=== PATIENT | female | born 1950 | race Caucasian/White ===

== ENCOUNTER → 2016-08-07 | Outpatient (CLI) | payer OTHER ==
[2015-10-31 22:44] VITALS: BP 194/91
--- NOTE | 2016-08-07 11:35 | MRI ---
HISTORY: Cervicalgia Study: MRI cervical spine without contrast Comparison: None Technique: Multi planar multi sequence non contrast images Findings: The prevertebral soft tissues are normal. The vertebral body alignment and bone signal is normal. Th e cervical spinal cord is normal in size and configuration and without foci of abnormal signal. Inci dental note is made of some benign hemangiomatous change in the C6 vertebral body. The disc levels w ere evaluated as follows: C2-3 level: No evidence for compressive disc disease. The neural foramina are patent. C3-4 level: Mild broad-based disk bulging causes mild thecal sac effacement but no neural compressio n or canal stenosis. The right neural foramen is patent. There is mild spondylitic foraminal narrowi ng on the left. C4-5 level: Minimal disk bulging effaces the thecal sac but does not contribute to significant canal stenosis or cord compression. The neural foramina are patent. C5-6 level: There is mild disc bulging which effaces the thecal sac but does not contribute to signi ficant canal stenosis or cord compression. The neural foramina are patent. C6-7 level: There is disc degeneration with broad-based disc osteophyte formation effacing the theca l sac and contributing to moderate canal stenosis but no significant cord compression. There is spon dylitic foraminal narrowing bilaterally. C7-T1 level: No evidence for compressive disc disease. The neural foramina are patent. IMPRESSION: As above Reported By:
--- NOTE | 2016-08-07 16:15 | MG ---
HISTORY: SCREENING Comparison: May 10, 2008 FINDINGS: Bilateral CC and MLO projections of the right and left breast were obtained. Predominately fatty re placed fibroglandular tissue is seen to be present. No significant architectural distortion, mass o r clustered microcalcifications can be observed to suggest malignancy. No skin thickening or nipple retraction is appreciated. No pathological lymphadenopathy can be identified. Benign-appearing ca lcifications scattered throughout the right and left breasts are observed. IMPRESSION: NO RADIOGRAPHIC EVIDENCE OF MALIGNANCY. ACR CATEGORY 2 - benign findings. FOLLOW-UP EXAM 1 YEAR. Diagnostic CAD was utilized and reviewed. * 0 (ZERO) - ASSESSMENT INCOMPLETE; ADDITIONAL IMAGING IS NEEDED. * 1/ (ONE) - NEGATIVE. * 2/II (TWO) - BENIGN FINDINGS. * 3/III (THREE) - PROBABLY BENIGN FINDING; SHORT INTERVAL FOLLOW-UP SUGGESTED. * 4/IV (FOUR) - SUSPICIOUS ABNORMALITY; BIOPSY SHOULD BE CONSIDERED. * 5/V - HIGHLY SUSPICIOUS OF MALIGNANCY; BIOPSY SHOULD BE PERFORMED. A NEGATIVE X-RAY REPORT SHOULD NOT DELAY BIOPSY IF A DOMINANT OR CLINICALLY SUSPICIOUS MASS IS PRESENT; 4 TO 8 PERCENT OF CANCERS ARE NOT IDENTIFIED BY X-RAY. A NEG ATIVE REPORT MAY REINFORCE THE CLINICAL IMPRESSION. ADENOSIS AND DENSE BREASTS MAY OBSCURE AN UNDER LYING NEOPLASM. Reported By:
--- NOTE | 2016-08-07 16:35 | MRI ---
MRI left shoulder without contrast Indication: Chronic left shoulder pain. Comparison: None Technique: Multiplanar, multisequence MR images of the left shoulder were obtained without contrast. Findings: The bony alignment and marrow signal are within normal limits, without evidence for acute fracture or subluxation. There is moderate degenerative disease at the AC joint, resulting in mild e ffacement of the underlying rotator cuff. There is a small amount of fluid within the subacromial/myrick bdeltoid bursa. The distal supraspinatus and infra spinatus are diffusely thickened with intermediat e signal, consistent with tendinosis, with undersurface fraying no high-grade tear or tendon retract ion is identified. The subscapularis, teres minor, and intra-articular biceps tendon are grossly int act. There is mildly increased fluid surrounding the extra-articular portion of the long head biceps tendon. There is no significant joint effusion. There is mild diffuse glenohumeral chondrosis, with out full-thickness chondral defect. No overt labral tear is identified. No significant muscle atroph y appreciated. Impression: 1. Distal supraspinatus and infraspinatus tendinosis with undersurface fraying. 2. 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 3. Increased fluid within the biceps tendon sheath may be related to communication with the joint sp leigh ann, although tenosynovitis is not excluded. Reported By:
== END ==
LOC: RAD 08:19
PROVIDERS: ATTEND Internal Medicine
DX: Z12.31 Encounter for screening mammogram for malignant neoplasm of breast (principal); M54.2 Cervicalgia; M25.512 Pain in left shoulder; M19.012 Primary osteoarthritis, left shoulder; M75.52 Bursitis of left shoulder; M50.81 Other cervical disc disorders, high cervical region; M50.821 Other cervical disc disorders at C4-C5 level; M50.822 Other cervical disc disorders at C5-C6 level; M50.323 Other cervical disc degeneration at C6-C7 level
CPT/HCPCS: 72141; 73221; 77067

== ENCOUNTER 2016-09-22 20:18 | Emergency (ER) | payer OTHER ==
[2016-09-22 20:24] VITALS: BMI 41.1
[2016-09-22] MEDS ORDERED: ASPIRIN ONE (20:42)
[2016-09-22] MEDS ORDERED: ASPIRIN PO SCH (21:00)
--- NOTE | 2016-09-22 21:02 | DR.CP ---
HPI - Time Seen Time seen: 21:00 - PCP Primary Care Physician: FRITZ - HPI Comment HPI Comment: SUDDEN ONSET OF PRECORDIAL CHEST PAIN RADIATING TO LEFT ARM AND STARTED GOING TO LEFT JAW BEFORE COMING.PAIN STARTED ONE HOUR AGO. PATIENT IS ASSOCIATED WITH NAUSEA AND DIAPHORESIS. - Complaint Chief Complaint Doctor Comments: CHEST PAIN. Chief Complaint:: CHEST PAIN RADIATES DOWN LEFT ARM, NAUSEA, SWEATY FEELING FOR ABOUT 45 MINS. Self Treatment fo Chief Complaint: XANAX 1MG - Reviewed Nurses Notes Review: Yes - Source History Provided: Patient - Mode of Arrival Mode of Arrival: Ambulatory - Timing Onset of Chief Complaint: 09/22/16 Came on: Suddenly Pain: Resolved - Duration Duration: Since Onset Duration: Hours - Location Location of Chest Pain: Left, Chest Chest Pain Radiation Location: Left Jaw, Left Arm, Left Shoulder - Context Onset: At rest Cardiac Risk Factors: Family History (heart failure.), HTN History of: None Prehospital Care: None - Quality Quality: Pressure like, Heavy - Severity Severity: Severe - Modifying Factors Worsens: Nothing Impoves: Nothing - Associated Signs and Symptoms Associated Signs and Symptoms: Shortness of Breath, Diaphoresis, Nausea/Vomiting PMH - PMH Past Medical History: Yes Past Medical History: Anxiety, Arthritis, Depression, GERD, Hypertension Past Surgical History: Yes Surgical History: Appendectomy, Cholecystectomy, Hysterectomy, Ortho Surgery, Tonsillectomy - Family History History of Family Medical Conditions: Yes Family Medical History: Diabetes Mellitus, Heart Failure, Hypertension - Social History Does patient currently use any type of tobacco product: No Type of Tobacco Use: None Does any household member use tobacco: No Alcohol Use: None Do you use any recreational Drugs:: No Lives With: Spouse Lives Where: Home - infectious screening Have you traveled outside the country in the last 6 months?: No Isolation: Standard ROS - Review of Systems Constitutional: Diaphoresis, Weakness, Fatigue. negative: Chills, Fever Eyes: No Symptoms Reported. negative: Eye Pain, Discharge ENTM: No Symptoms Reported. negative: Ear Pain, Nose Discharge, Nose Congestion , Throat Pain Respiratoy: Short of Breath. negative: Productive Cough, Non-Productive Cough, Wheezing, Hemoptysis Cardiovascular: Chest Pain, Edema. negative: Palpitations, Syncope Genitourinary: No Symptoms Reported. negative: Dysuria, Frequency, Hematuria Neurological: Weakness Musculoskeletal: Back Pain, Joint Pain, Muscle Pain, Back Integumentary: Change in Color. negative: Juandice Hematologic/Lymphatic: Easy Bleeding, Easy Bruising Endocrine: No Symptoms Reported All Other Systems: Reviewed and Negative PE - Vitals Vitals: Temperature 97.5 F Pulse Rate [Apical] 87 Pulse Rate 100 Respiratory Rate 20 Blood Pressure [Left Arm] 135/72 Blood Pressure [Right Arm] 138/68 Blood Pressure 179/81 O2 Sat by Pulse Oximetry 99 - General Limitations: No Limitations General Appearance: Alert - Head Head Exam: Normal Inspection - Eyes Eye exam: Normal Appearance - ENT ENT Exam: Normal External Ear Exam - Chest Chest Inspection: Symmetric Chest Wall Rise - Respiratory Respiratory Exam: Normal Lung Sounds Bilat Respiratory Exam: Bilateral Clear to Auscultation - Cardiovascular Cardiovascular Exam: Regular Rate, Normal Rhythm, Normal Heart Sounds Pulse: Normal, Radial, Femoral Edema: Normal - Abdominal Exam Abdominal Exam: Normal Bowel Sounds, Soft. negative: Tenderness - Extremities Extremities Exam: Normal Inspection - Back Back Exam: Normal Inspection - Neurologic Neurological Exam: Alert, Oriented X3 - Psychiatric Psychiatric Exam: Anxious - Skin Skin Exam: Diaphoresis MDM - Additional Information Additional Information Obtained From: Family - Differential Diagnosis Differential Diagnosis: Angina, CHF, Myocardial Infarction, Pericarditis, Pleuritis, Pancreatitis, Pneumonia, Pneumothorax, Pulmonary Embolus Course - Treatment Treatment: SEE ORDERS. - Reevaluation 1st: Improved - Consultation Consultation Comments: DISCUSS WITH H[employer] EQUIPMENT OPERATOR DR. TANNER, HOSPITALIST TO ADMIT PATIENT. DR SAENZ, HOSPITALIST ACCEPTED PATIENT AT [facility]. - Education/Counseling Education/Counseling: Patient, Family, Education Educated On: Treatment, Diagnosis ROR - Labs Reviewed Laboratory Results Reviewed?: Yes Result Diagrams: 09/22/16 21:10 09/22/16 21:10 Laboratory: WBC 7.3 X10^3/uL (3.6-10.0) 09/22/16 21:10 RBC 4.26 X10^6/uL (3.5-5.4) 09/22/16 21:10 Hgb 10.8 g/dL (12.0-16.0) L 09/22/16 21:10 Hct 32.9 % (36.0-47.0) L 09/22/16 21:10 MCV 77.2 fL (80.0-100.0) L 09/22/16 21:10 MCH 25.2 pg (27.0-34.0) L 09/22/16 21:10 MCHC 32.7 g/dL (33.0-35.0) L 09/22/16 21:10 RDW 16.4 % (11.6-16.5) 09/22/16 21:10 Plt Count 210 X10^3/uL (150.0-450.0) 09/22/16 21:10 Plt Count Comment Adequate (ADEQUATE) 09/22/16 21:10 MPV 9.2 fL (7.4-11.0) 09/22/16 21:10 Neut % 48.0 % (42.0-75.0) 09/22/16 21:10 Lymph % 37.0 % (21.0-51.0) 09/22/16 21:10 Milam % 10.5 % (0.0-13.0) 09/22/16 21:10 Eos % 3.3 % (0.9-2.9) H 09/22/16 21:10 Baso % 1.2 % (0.2-1.0) H 09/22/16 21:10 Neut # 3.5 x10^3/uL (2.2-4.8) 09/22/16 21:10 Lymph # 2.7 X10^3/uL (1.3-2.9) 09/22/16 21:10 Milam # 0.8 x10^3/uL (0.3-0.8) 09/22/16 21:10 Eos # 0.2 x10^3/uL (0.0-0.2) 09/22/16 21:10 Baso # 0.1 X10^3/uL (0.0-0.1) 09/22/16 21:10 Absolute Nucleated RBC 0.0 /100WBC 09/22/16 21:10 Plt Morphology Comment Normal (NORMAL) 09/22/16 21:10 RBC Morphology Normal (NORMAL) 09/22/16 21:10 INR Target Range - 09/22/16 21:10 INR 0.95 (0.8-1.3) 09/22/16 21:10 PTT 31.4 SECONDS (22.9-36.5) 09/22/16 21:10 PTT Comment - 09/22/16 21:10 Sodium 143 mmol/L (136-145) 09/22/16 21:10 Corrected Sodium TNP 09/22/16 21:10 Potassium 3.4 mmol/L (3.5-5.1) L 09/22/16 21:10 Chloride 108 mmol/L (98-107) H 09/22/16 21:10 Carbon Dioxide 27.9 mmol/L (21-32) 09/22/16 21:10 BUN 9 mg/dL (7-18) 09/22/16 21:10 Creatinine 0.76 mg/dL (0.55-1.02) 09/22/16 21:10 Est GFR (MDRD) Af Amer > 60 (>60) 09/22/16 21:10 Est GFR (MDRD) Non-Af > 60 (>60) 09/22/16 21:10 Glucose 91 mg/dL (65-99) 09/22/16 21:10 Calcium 8.8 mg/dL (8.5-10.1) 09/22/16 21:10 Corrected Calcium 9.4 mg/dL (8.5-10.1) 09/22/16 21:10 Magnesium 1.8 mg/dL (1.7-2.9) 09/22/16 21:10 Total Bilirubin 0.30 mg/dL (0.2-1.0) 09/22/16 21:10 AST 14 Units/L (15-37) L 09/22/16 21:10 ALT 18 Units/L (12-78) 09/22/16 21:10 Alkaline Phosphatase 133 Units/L (46-116) H 09/22/16 21:10 Creatine Kinase 106 Units/L (26-192) 09/22/16 23:30 CK-MB (CK-2) 1.0 ng/mL (0-4.0) 09/22/16 23:30 CK/CKMB % Calc 0.9 % (<4) 09/22/16 23:30 Troponin I 0.05 ng/mL (0-1.5) 09/22/16 23:30 Total Protein 7.3 g/dL (6.4-8.2) 09/22/16 21:10 Albumin 3.2 g/dL (3.4-5.0) L 09/22/16 21:10 Globulin 4.1 g/dL (2.5-4.5) 09/22/16 21:10 Albumin/Globulin Ratio 0.8 Ratio (1.1-2.1) L 09/22/16 21:10 - XRAY XRAY Interpreted by: Radiologist XRAY Findings: REPORT DISCUSS WITH PATIENT. - EKG Rhythm: NSR (EKG NOTED) - Diagnosis Discharge Problem: Abnormal cardiac enzyme level Chest pain Qualifiers: Chest pain type: precordial pain Qualified Code(s): R07.2 - Precordial pain - Discharge Plan Disposition: XFER S[facility]-TRM HOSP Condition: Stable - Follow ups/Referrals Follow ups/Referrals: Carlos Gilliland [Primary Care Provider] - 3 days - Instructions
[2016-09-22 21:24] LABS: BASOPHILS # (AUTO) 0.1 X10^3/uL (0.0-0.1); BASOPHILS % (AUTO) 1.2 % (0.2-1.0); EOSINOPHILS # (AUTO) 0.2 x10^3/uL (0.0-0.2); EOSINOPHILS % (AUTO) 3.3 % (0.9-2.9); HEMATOCRIT 32.9 % (36.0-47.0); HEMOGLOBIN 10.8 g/dL (12.0-16.0); LYMPHOCYTES # (AUTO) 2.7 X10^3/uL (1.3-2.9); MEAN CORPUSCULAR HEMOGLOBIN 25.2 pg (27.0-34.0); MEAN CORPUSCULAR HGB CONC 32.7 g/dL (33.0-35.0); MEAN CORPUSCULAR VOLUME 77.2 fL (80.0-100.0); MEAN PLATELET VOLUME 9.2 fL (7.4-11.0); MONOCYTES # (AUTO) 0.8 x10^3/uL (0.3-0.8); MONOCYTES % (AUTO) 10.5 % (0.0-13.0); NEUTROPHILS # (AUTO) 3.5 x10^3/uL (2.2-4.8); PLATELET COUNT 210 X10^3/uL (150.0-450.0); RED BLOOD COUNT 4.26 X10^6/uL (3.5-5.4); RED CELL DISTRIBUTION WIDTH 16.4 % (11.6-16.5); WHITE BLOOD COUNT 7.3 X10^3/uL (3.6-10.0)
--- NOTE | 2016-09-22 21:26 | RAD ---
EXAM: Chest X-ray INDICATION: Chest pain COMPARISION: Prior exam from October 31, 2015 TECHNIQUE: AP, single view FINDINGS: The lungs are clear in the lung volumes are within normal limits. No pleural effusion or pneumothora x. The cardiac silhouette and mediastinum are normal. The regional skeleton is intact. IMPRESSION: Normal Chest X-Ray Reported By:
[2016-09-22 21:34] LABS: ALANINE AMINOTRANSFERASE 18 Units/L (12-78); ALBUMIN 3.2 g/dL (3.4-5.0); ALKALINE PHOSPHATASE 133 Units/L (46-116); ASPARTATE AMINO TRANSFERASE 14 Units/L (15-37); BLOOD UREA NITROGEN 9 mg/dL (7-18); CALCIUM 8.8 mg/dL (8.5-10.1); CARBON DIOXIDE 27.9 mmol/L (21-32); CHLORIDE 108 mmol/L (98-107); COR CA(FOR HYPOALB) 9.4 mg/dL (8.5-10.1); CREATININE 0.76 mg/dL (0.55-1.02); GLUCOSE 91 mg/dL (65-99); MAGNESIUM 1.8 mg/dL (1.7-2.9); SODIUM 143 mmol/L (136-145); TOTAL PROTEIN 7.3 g/dL (6.4-8.2); eGFR BLACK RACES > 60 (>60); eGFR NON BLACK RACES > 60 (>60)
[2016-09-22 21:45] LABS: PLATELET MORPHOLOGY COMMENT NORMAL (NORMAL)
[2016-09-22 21:46] LABS: CREATINE KINASE 100 Units/L (26-192); CREATINE KINASE MB < 1.0 ng/mL (0-4.0); TROPONIN I 0.03 ng/mL (0-1.5)
[2016-09-23 00:03] LABS: CKMB % 0.9 % (<4); TROPONIN I 0.05 ng/mL (0-1.5)
[2016-09-23] MEDS ORDERED: POTASSIUM CHLORIDE LIQ 20 MEQ UDC PO ONE (00:14)
[2016-09-23] MEDS ORDERED: K-DUR TAB 20 MEQ PO ONE (00:51)
[2016-09-23 01:14] VITALS: BP 138/68
== END 2016-09-23 02:05 | disposition short-term general hospital (02) ==
LOC: ER 20:18
DX: R07.2 Precordial pain (principal); R74.9 Abnormal serum enzyme level, unspecified; R07.89 Other chest pain
CPT/HCPCS: 36415; 71010; 80053; 82550; 82553; 83735; 84484; 85025; 85610; 85730; 93005; 96365; 99284; 99285; A4216; A4222

== ENCOUNTER 2016-10-16 19:38 | Emergency (ER) | payer OTHER ==
[2016-10-16 19:45] VITALS: BP 166/75; BMI 41.1
--- NOTE | 2016-10-16 21:22 | DR.GENAD ---
HPI - PCP Primary Care Physician: Talat - Complaint/Symptoms Chief Complaint Doctors Comments: I agree with statement. Patient denies fever, or vomiting. Chief Complaint:: "About 330 I have been having pain in my stomach. My bowls haven't been moving here lately. I took a couple of stool softeners but it doesn 't seem to be moving much. I'm just sore in there where the hernias are. I have had hernias for several years now." - Source History Provided: Patient - Mode of Arrival Mode of Arrival: Ambulatory - Timing Onset of Chief Complaint: 10/16/16 PMH - PMH Past Medical History: Yes Past Medical History: Anxiety, Arthritis, Depression, GERD, Hypertension Past Surgical History: Yes Surgical History: Angioplasty/Stents, Appendectomy, Cholecystectomy, Hysterectomy, Ortho Surgery, Tonsillectomy Past Surgical History Comment: 2 stents recently - Family History History of Family Medical Conditions: Yes Family Medical History: Diabetes Mellitus, Heart Failure, Hypertension - Social History Does patient currently use any type of tobacco product: No Have you used tobacco products in the last 12 months: No Type of Tobacco Use: None Does any household member use tobacco: No Alcohol Use: None Do you use any recreational Drugs:: No Lives With: Family Lives Where: Home - infectious screening In the last 2 months have you had wt loss of >10#?: NO Have you had fever, night sweats or hemotysis?: No Have you traveled outside the country in the last 6 months?: No Isolation: Standard ROS - Review of Systems Constitutional: negative: Diaphoresis Eyes: No Symptoms Reported ENTM: No Symptoms Reported Respiratoy: No Symptoms Reported Cardiovascular: No Symptoms Reported Gastrointestinal/Abdominal: No Symptoms Reported Genitourinary: No Symptoms Reported Neurological: No Symptoms Reported Musculoskeletal: No Symptoms Reported Integumentary: No Symptoms Reported Hematologic/Lymphatic: No Symptoms Reported Endocrine: No Symptoms Reported Psychiatric: No Symptoms Reported All Other Systems: Reviewed and Negative PE - Vital Signs Vitals: Temperature 98.1 F Pulse Rate 95 Respiratory Rate 18 Blood Pressure [Left Arm] 135/72 Blood Pressure [Right Arm] 138/68 Blood Pressure 166/75 O2 Sat by Pulse Oximetry 98 - General Limitations: No Limitations General Appearance: Alert, In No Apparent Distress - Head Head Exam: Normal Inspection, Atraumatic - Eyes Eye exam: Normal Appearance, PERRL, EOMI - ENT ENT Exam: Normal Exam External Ear Exam: Normal External Inspection TM/Canal Exam: Bilateral Normal Nose Exam: Normal Nose Exam Mouth Exam: Normal Inspection Throat Exam: Normal Inspection - Neck Neck Exam: Normal Inspection - Chest Chest Inspection: Normal Inspection - Respiratory Respiratory Exam: Normal Lung Sounds Bilat Respiratory Exam: Bilateral Clear to Auscultation - Cardiovascular Cardiovascular Exam: Regular Rate - Abdominal Exam Abdominal Exam: Normal Inspection Abdominal Tenderness: Epigastrium - Extremities Extremities Exam: Normal Inspection, Full ROM - Back Back Exam: Normal Inspection - Neurologic Neurological Exam: Alert, Oriented X3, CN II-XII Intact - Psychiatric Psychiatric Exam: Normal Affect - Skin Skin Exam: Warm, Dry, Intact Course - Reevaluation 1st: Improved ROR - XRAY XRAY Interpreted by: Radiologist (Chest demonstrates normal cardiopericardial silhouette. There is no focal consolidation, pleural effusion or pneumothorax. Pulmonary vascularity is normal. Abdominal radiographs demonstrate a nonobstructive bowel gas pattern. Gas and stool are seen throughout the colon. There is no small bowel distention. There is no radiographic evidence of pneumoperitoneum. Stable right shoulder hemiarthroplasty. Soft tissues are unremarkable. Impression: No acute cardiopulmonary process. Nonobstructive bowel gas pattern without radiographic evidence of penumoperitoneum.) - Diagnosis Discharge Problem: Constipation by delayed colonic transit - Discharge Plan Condition: Stable - Follow ups/Referrals Follow ups/Referrals: Carlos Gilliland [Primary Care Provider] - 3 days - Instructions
[2016-10-16] MEDS ORDERED: TORADOL 30 MG VIAL IM ONE (21:25)
[2016-10-16] MEDS ORDERED: TORADOL 30 MG VIAL ONE (21:25)
--- NOTE | 2016-10-16 23:23 | RAD ---
ACUTE ABDOMINAL SERIES CLINICAL HISTORY: 66-year-old female with stomach pain for several days. COMPARISON: Chest radiograph September 22, 2016. FINDINGS: AP chest radiograph demonstrates normal cardiopericardial silhouette. There is no focal consolidatio n, pleural effusion or pneumothorax. Pulmonary vascularity is normal. Abdominal radiographs demonstrate a nonobstructive bowel gas pattern. Gas and stool are seen through out the colon. There is no small bowel distention. There is no radiographic evidence of pneumoperito neum. Stable right shoulder hemiarthroplasty. Soft tissues are unremarkable. IMPRESSION: 1. No acute cardiopulmonary process. 2. Nonobstructive bowel gas pattern without radiographic evidence of pneumoperitoneum. Reported By:
== END 2016-10-16 23:45 | disposition home or self-care (01) ==
LOC: ER 19:38
DX: K59.01 Slow transit constipation (principal); R10.13 Epigastric pain
CPT/HCPCS: 74022; 96372; 99282; 99283; J1885

== ENCOUNTER 2016-12-03 11:29 | Emergency (ER) | payer OTHER ==
[2016-12-03] MEDS ORDERED: ASPIRIN 81 MG CHEWTAB ONE (11:33)
[2016-12-03 11:49] LABS: BASOPHILS # (AUTO) 0.2 X10^3/uL (0.0-0.1); BASOPHILS % (AUTO) 2.4 % (0.2-1.0); EOSINOPHILS # (AUTO) 0.2 x10^3/uL (0.0-0.2); EOSINOPHILS % (AUTO) 2.7 % (0.9-2.9); HEMATOCRIT 34.2 % (36.0-47.0); LYMPHOCYTES # (AUTO) 1.3 X10^3/uL (1.3-2.9); LYMPHOCYTES % (AUTO) 17.1 % (21.0-51.0); MEAN CORPUSCULAR HEMOGLOBIN 24.3 pg (27.0-34.0); MEAN CORPUSCULAR HGB CONC 32.1 g/dL (33.0-35.0); MEAN CORPUSCULAR VOLUME 75.8 fL (80.0-100.0); MEAN PLATELET VOLUME 8.9 fL (7.4-11.0); MONOCYTES # (AUTO) 0.4 x10^3/uL (0.3-0.8); MONOCYTES % (AUTO) 5.5 % (0.0-13.0); NEUTROPHILS # (AUTO) 5.5 x10^3/uL (2.2-4.8); NEUTROPHILS % (AUTO) 72.3 % (42.0-75.0); PLATELET COUNT 242 X10^3/uL (150.0-450.0); RED BLOOD COUNT 4.52 X10^6/uL (3.5-5.4); RED CELL DISTRIBUTION WIDTH 16.1 % (11.6-16.5); WHITE BLOOD COUNT 7.6 X10^3/uL (3.6-10.0)
[2016-12-03] MEDS: NITROSTAT SL PRN ×2 (11:49→11:54)
[2016-12-03] MEDS: NS 1000 ML 1,000 ML IV SCH ×2 (11:50→21:00)
[2016-12-03] MEDS ORDERED: ASPIRIN 81 MG CHEWTAB PO SCH (12:00)
--- NOTE | 2016-12-03 12:02 | DR.CP ---
HPI - Time Seen Time seen: 11:45 - PCP Primary Care Physician: Talat - Complaint Chief Complaint Doctor Comments: Patient admits to left chest pain, sharp non radiating. Pain is constant. there is no diaphoresis. Previous stent LAD last month. Chief Complaint:: "I have been having a burning deep chest pain for about 1 hour now!" Self Treatment fo Chief Complaint: ASA 81 mg x 1 - Source History Provided: Patient, Family Member - Mode of Arrival Mode of Arrival: Ambulatory - Timing Onset of Chief Complaint: 12/03/16 - Location Chest Pain Radiation Location: None - Associated Signs and Symptoms Associated Signs and Symptoms: Diaphoresis PMH - PMH Past Medical History: Yes Past Medical History: Coronary Artery Disease, GERD, Hypertension Past Surgical History: Yes Surgical History: Angioplasty/Stents - Family History History of Family Medical Conditions: Yes Family Medical History: Diabetes Mellitus, Coronary Artery Disease, Heart Failure, Hypertension - Social History Does patient currently use any type of tobacco product: No Have you used tobacco products in the last 12 months: No Type of Tobacco Use: None Does any household member use tobacco: No Alcohol Use: None Do you use any recreational Drugs:: No Lives With: Family Lives Where: Home - infectious screening In the last 2 months have you had wt loss of >10#?: NO Have you had fever, night sweats or hemotysis?: No Have you traveled outside the country in the last 6 months?: No ROS - Review of Systems Eyes: No Symptoms Reported ENTM: No Symptoms Reported Respiratoy: No Symptoms Reported Cardiovascular: No Symptoms Reported Gastrointestinal/Abdominal: No Symptoms Reported Genitourinary: No Symptoms Reported Neurological: No Symptoms Reported Musculoskeletal: No Symptoms Reported Integumentary: No Symptoms Reported Hematologic/Lymphatic: No Symptoms Reported Endocrine: No Symptoms Reported Psychiatric: No Symptoms Reported All Other Systems: Reviewed and Negative PE - Vitals Vitals: Temperature 98.1 F Pulse Rate [Left Brachial] 57 Pulse Rate 57 Respiratory Rate 18 Blood Pressure [Left Arm] 135/72 Blood Pressure [Right Arm] 118/62 Blood Pressure 154/74 O2 Sat by Pulse Oximetry 98 - General Limitations: No Limitations General Appearance: Alert - Head Head Exam: Normal Inspection, Atraumatic - Eyes Eye exam: Normal Appearance, PERRL, EOMI - ENT ENT Exam: Normal Exam - Chest Chest Inspection: Normal Inspection - Respiratory Respiratory Exam: Normal Lung Sounds Bilat Respiratory Exam: Bilateral Clear to Auscultation - Cardiovascular Cardiovascular Exam: Regular Rate Pulse: Normal, Radial Edema: Normal - Abdominal Exam Abdominal Exam: Normal Inspection Abdominal Tenderness: negative: RUQ, RLQ, LUQ, LLQ, Epigastrium, Suprapubic, Diffuse, Mild, Moderate, Severe, Other - Extremities Extremities Exam: Normal Inspection, Full ROM - Back Back Exam: Normal Inspection, Full ROM - Neurologic Neurological Exam: Alert, Oriented X3, CN II-XII Intact - Psychiatric Psychiatric Exam: Normal Affect - Skin Skin Exam: Warm, Dry, Intact Course - Reevaluation 1st: Improved ROR - Labs Reviewed Laboratory Results Reviewed?: Yes (cardiacs negative) Result Diagrams: 12/03/16 11:35 12/03/16 11:35 Laboratory: WBC 7.6 X10^3/uL (3.6-10.0) 12/03/16 11:35 RBC 4.52 X10^6/uL (3.5-5.4) 12/03/16 11:35 Hgb 11.0 g/dL (12.0-16.0) L 12/03/16 11:35 Hct 34.2 % (36.0-47.0) L 12/03/16 11:35 MCV 75.8 fL (80.0-100.0) L 12/03/16 11:35 MCH 24.3 pg (27.0-34.0) L 12/03/16 11:35 MCHC 32.1 g/dL (33.0-35.0) L 12/03/16 11:35 RDW 16.1 % (11.6-16.5) 12/03/16 11:35 Plt Count 242 X10^3/uL (150.0-450.0) 12/03/16 11:35 Plt Count Comment Adequate (ADEQUATE) 12/03/16 11:35 MPV 8.9 fL (7.4-11.0) 12/03/16 11:35 Neut % 72.3 % (42.0-75.0) 12/03/16 11:35 Lymph % 17.1 % (21.0-51.0) L 12/03/16 11:35 Mcnairy % 5.5 % (0.0-13.0) 12/03/16 11:35 Eos % 2.7 % (0.9-2.9) 12/03/16 11:35 Baso % 2.4 % (0.2-1.0) H 12/03/16 11:35 Neut # 5.5 x10^3/uL (2.2-4.8) H 12/03/16 11:35 Lymph # 1.3 X10^3/uL (1.3-2.9) 12/03/16 11:35 Mcnairy # 0.4 x10^3/uL (0.3-0.8) 12/03/16 11:35 Eos # 0.2 x10^3/uL (0.0-0.2) 12/03/16 11:35 Baso # 0.2 X10^3/uL (0.0-0.1) H 12/03/16 11:35 Absolute Nucleated RBC 0.0 /100WBC 12/03/16 11:35 Plt Morphology Comment Normal (NORMAL) 12/03/16 11:35 RBC Morphology Abnormal (NORMAL) A 12/03/16 11:35 Hypochromasia Slight A 12/03/16 11:35 INR Target Range - 12/03/16 11:35 INR 1.02 (0.8-1.3) 12/03/16 11:35 PTT 29.3 SECONDS (22.9-36.5) 12/03/16 11:35 PTT Comment - 12/03/16 11:35 Sodium 139 mmol/L (136-145) 12/03/16 11:35 Corrected Sodium TNP 12/03/16 11:35 Potassium 4.4 mmol/L (3.5-5.1) 12/03/16 11:35 Chloride 103 mmol/L (98-107) 12/03/16 11:35 Carbon Dioxide 31.7 mmol/L (21-32) 12/03/16 11:35 BUN 11 mg/dL (7-18) 12/03/16 11:35 Creatinine 0.85 mg/dL (0.55-1.02) 12/03/16 11:35 Est GFR (MDRD) Af Amer > 60 (>60) 12/03/16 11:35 Est GFR (MDRD) Non-Af > 60 (>60) 12/03/16 11:35 Glucose 97 mg/dL (65-99) 12/03/16 11:35 Calcium 8.7 mg/dL (8.5-10.1) 12/03/16 11:35 Corrected Calcium TNP 12/03/16 11:35 Phosphorus 3.7 mg/dL (2.6-4.7) 12/03/16 11:35 Magnesium 1.9 mg/dL (1.7-2.9) 12/03/16 11:35 Total Bilirubin 0.90 mg/dL (0.2-1.0) 12/03/16 11:35 AST 21 Units/L (15-37) 12/03/16 11:35 ALT 19 Units/L (12-78) 12/03/16 11:35 Alkaline Phosphatase 121 Units/L (46-116) H 12/03/16 11:35 Creatine Kinase 86 Units/L (26-192) 12/03/16 11:35 CK-MB (CK-2) < 1.0 ng/mL (0-4.0) 12/03/16 11:35 CK/CKMB % Calc 1.2 % (<4) 12/03/16 11:35 Troponin I < 0.02 ng/mL (0-1.5) 12/03/16 11:35 Total Protein 7.9 g/dL (6.4-8.2) 12/03/16 11:35 Albumin 3.4 g/dL (3.4-5.0) 12/03/16 11:35 Globulin 4.5 g/dL (2.5-4.5) 12/03/16 11:35 Albumin/Globulin Ratio 0.8 Ratio (1.1-2.1) L 12/03/16 11:35 - XRAY XRAY Interpreted by: Radiologist (Chest: cardiomegaly withou CHF) - EKG Rate: 64 Spencer: Normal Block: RBBB - Diagnosis Discharge Problem: Chest pain Qualifiers: Chest pain type: unspecified Qualified Code(s): R07.9 - Chest pain, unspecified - Follow ups/Referrals Follow ups/Referrals: Carlos Gilliland [Primary Care Provider] - 3 days - Instructions
[2016-12-03 12:03] VITALS: BMI 42.1
[2016-12-03 12:03] LABS: HYPOCHROMASIA SLIGHT; PLATELET MORPHOLOGY COMMENT NORMAL (NORMAL)
[2016-12-03 12:13] LABS: BLOOD UREA NITROGEN 11 mg/dL (7-18); CALCIUM 8.7 mg/dL (8.5-10.1); CARBON DIOXIDE 31.7 mmol/L (21-32); CHLORIDE 103 mmol/L (98-107); CREATININE 0.85 mg/dL (0.55-1.02); GLUCOSE 97 mg/dL (65-99); SODIUM 139 mmol/L (136-145); TROPONIN I < 0.02 ng/mL (0-1.5); eGFR BLACK RACES > 60 (>60); eGFR NON BLACK RACES > 60 (>60)
--- NOTE | 2016-12-03 12:15 | RAD ---
HISTORY: Chest pain Study: AP chest Comparison: October 16, 2016 Findings: The trachea is midline. The cardiac silhouette is enlarged. No congestive heart failure is noted.. The lungs are clear without focal infiltrate or effusion. The bony thorax is unremarkable. The pa tient is status post right shoulder hemiarthroplasty. IMPRESSION: 1. Cardiomegaly without congestive heart failure 2. Lungs clear Reported By:
[2016-12-03 12:17] LABS: ALANINE AMINOTRANSFERASE 19 Units/L (12-78); ALBUMIN 3.4 g/dL (3.4-5.0); ALKALINE PHOSPHATASE 121 Units/L (46-116); ASPARTATE AMINO TRANSFERASE 21 Units/L (15-37); CKMB % 1.2 % (<4); CREATINE KINASE 86 Units/L (26-192); CREATINE KINASE MB < 1.0 ng/mL (0-4.0); MAGNESIUM 1.9 mg/dL (1.7-2.9); PHOSPHORUS 3.7 mg/dL (2.6-4.7); TOTAL PROTEIN 7.9 g/dL (6.4-8.2)
[2016-12-03] MEDS ORDERED: MORPHINE SULFATE INJ 2 MG IVP PRN (13:17)
[2016-12-03] MEDS ORDERED: ZANAFLEX PO PRN (13:23)
[2016-12-03] MEDS ORDERED: PATIENT'S HOME MEDICATION (Alprazolam [Xanax 1 Mg] 1 TAB) PO SCH (14:00)
[2016-12-03 15:51] LABS: CKMB % 1.5 % (<4); CREATINE KINASE 67 Units/L (26-192); CREATINE KINASE MB < 1.0 ng/mL (0-4.0); TROPONIN I < 0.02 ng/mL (0-1.5)
[2016-12-03] MEDS ORDERED: DILTIAZEM HCL PO SCH (16:15)
[2016-12-03] MEDS: REGLAN TAB 5 MG PO SCH (20:57)
[2016-12-03] MEDS: COREG TAB 12.5 MG PO SCH (20:57)
[2016-12-03] MEDS: CARDIZEM TAB 30 MG PLAIN PO SCH (20:57)
[2016-12-03 22:18] LABS: CKMB % 1.5 % (<4); CREATINE KINASE 69 Units/L (26-192); CREATINE KINASE MB < 1.0 ng/mL (0-4.0); TROPONIN I < 0.02 ng/mL (0-1.5)
[2016-12-03] MEDS: XANAX PO SCH (22:37)
[2016-12-04] MEDS: NS 1000 ML 1,000 ML IV SCH ×6 (01:56→22:36)
[2016-12-04 05:23] LABS: BASOPHILS # (AUTO) 0.1 X10^3/uL (0.0-0.1); EOSINOPHILS # (AUTO) 0.2 x10^3/uL (0.0-0.2); EOSINOPHILS % (AUTO) 3.2 % (0.9-2.9); HEMATOCRIT 29.2 % (36.0-47.0); HEMOGLOBIN 9.4 g/dL (12.0-16.0); LYMPHOCYTES # (AUTO) 1.3 X10^3/uL (1.3-2.9); LYMPHOCYTES % (AUTO) 25.2 % (21.0-51.0); MEAN CORPUSCULAR HEMOGLOBIN 24.6 pg (27.0-34.0); MEAN CORPUSCULAR HGB CONC 32.2 g/dL (33.0-35.0); MEAN CORPUSCULAR VOLUME 76.4 fL (80.0-100.0); MEAN PLATELET VOLUME 8.5 fL (7.4-11.0); MONOCYTES # (AUTO) 0.6 x10^3/uL (0.3-0.8); MONOCYTES % (AUTO) 10.9 % (0.0-13.0); NEUTROPHILS # (AUTO) 3.2 x10^3/uL (2.2-4.8); NEUTROPHILS % (AUTO) 59.7 % (42.0-75.0); PLATELET COUNT 184 X10^3/uL (150.0-450.0); RED BLOOD COUNT 3.82 X10^6/uL (3.5-5.4); RED CELL DISTRIBUTION WIDTH 15.8 % (11.6-16.5); WHITE BLOOD COUNT 5.3 X10^3/uL (3.6-10.0)
[2016-12-04 05:35] LABS: ALANINE AMINOTRANSFERASE 41 Units/L (12-78); ALBUMIN 2.8 g/dL (3.4-5.0); ALKALINE PHOSPHATASE 137 Units/L (46-116); ASPARTATE AMINO TRANSFERASE 51 Units/L (15-37); BLOOD UREA NITROGEN 10 mg/dL (7-18); CALCIUM 8.1 mg/dL (8.5-10.1); CARBON DIOXIDE 31.2 mmol/L (21-32); CHLORIDE 108 mmol/L (98-107); CHOL/HDL RATIO 2.6 (0.0-5.0); CHOLESTEROL 131 mg/dL (0-200); COR CA(FOR HYPOALB) 9.1 mg/dL (8.5-10.1); COR NA(FOR HYPERGLY) 141 mmol/L (136-145); CREATININE 0.79 mg/dL (0.55-1.02); GLUCOSE 111 mg/dL (65-99); HDL CHOLESTEROL 50 mg/dL (40-60); SODIUM 141 mmol/L (136-145); TOTAL PROTEIN 6.5 g/dL (6.4-8.2); TRIGLYCERIDES 103 mg/dL (0-150); eGFR BLACK RACES > 60 (>60); eGFR NON BLACK RACES > 60 (>60)
[2016-12-04 05:44] LABS: HYPOCHROMASIA 1+; MICROCYTOSIS 1+; PLATELET MORPHOLOGY COMMENT NORMAL (NORMAL)
[2016-12-04] MEDS: XANAX PO SCH ×3 (06:02→22:20)
[2016-12-04] MEDS: COZAAR PO SCH (08:43)
[2016-12-04] MEDS: BENTYL CAP 10 MG PO SCH (08:43)
[2016-12-04] MEDS: CELEXA PO SCH (08:44)
[2016-12-04] MEDS: ASPIRIN EC 81 MG PO SCH (08:44)
[2016-12-04] MEDS: REGLAN TAB 5 MG PO SCH ×2 (08:44→20:30)
[2016-12-04] MEDS: PROTONIX TAB 40 MG PO SCH (08:45)
[2016-12-04] MEDS: CARDIZEM TAB 30 MG PLAIN PO SCH ×2 (08:45→20:30)
[2016-12-04] MEDS: LIPITOR TAB 40 MG PO SCH (08:45)
[2016-12-04] MEDS: PLAVIX PO SCH (08:47)
[2016-12-04] MEDS: COREG TAB 12.5 MG PO SCH ×2 (08:47→20:30)
[2016-12-04] MEDS ORDERED: CITALOPRAM HYDROBROMIDE PO SCH (09:00)
[2016-12-04] MEDS ORDERED: PATIENT'S HOME MEDICATION (Dicyclomine Hcl [Dicyclomine Hcl] 1 TAB) PO SCH (09:00)
[2016-12-04] MEDS ORDERED: PATIENT'S HOME MEDICATION (Losartan Potassium [Losartan Potassium] 1 TAB) PO SCH (09:00)
--- NOTE | 2016-12-04 09:46 | DR.H&P ---
H&P - History & Physical for Day of: H&P Date: 12/03/16 - Chief Complaint Chief Complaint: IS A 66 YEAR OLD PATIENT OF OURS WHO PRESENTED TO THE EMERGENCY ROOM WITH COMPLAINTS OF LEFT SIDED CHEST PAIN FOR 1 HOUR PRIOR TO ARRIVING TO ER. SHE DESCRIBED PAIN SHARP AND BURNING AND DOES NOT RADIATE. SHE IS ALSO NOTED WITH COMPLAINTS OF SHORTNESS OF BREATH. SHE DENIES COUGH OR FEVER. SHE REPORTS A HISTORY OF CARDIAC STENTS THAT WERE PLACED LAST MONTH. ON ARRIVAL TO ER, VITALS WERE 99.1, 66, 18, 99%RA, 136/67. CBC WNL EXCEPT HGB 11.0 , HCT 34.2, MCV 75.8, MCH 24.3, MCHC 32.1. CMP WNL EXCEPT ALK PHOS 121, A/G RATIO 0.8. CARDIAC ENZYMES WNL. CHEST XRAY REPORTS CARDIOMEGALY WITHOUT CHF. EKG REPORTS SINUS RHYTHM WITH HEART RATE OF 64. WE ADMITTED PATIENT FOR FURTHER TREATMENT AND EVALUATION. WE WILL CHECK SERIAL CARDIAC ENZYMES AND EKG. WE STARTED HER ON NS @125ML/HR, MORPHINE 2MG IV Q2H PRN PAIN, AND NITRO PRN PAIN. WE WILL REVIEW HOME MEDICATIONS, RECHECK LABS, AND FOLLOW UP WITH PATIENT IN AM. - Allergies Allergies/Adverse Reactions: Allergies Allergy/AdvReac Type Severity Reaction Status Date / Time codeine Allergy Verified 12/03/16 15:58 levofloxacin [From Levaquin] Allergy Verified 12/03/16 15:58 nalbuphine [From Nubain] Allergy Verified 12/03/16 15:58 penicillin G Allergy Verified 12/03/16 15:58 rifampin Allergy Verified 12/03/16 15:58 Sulfa (Sulfonamide Allergy Verified 12/03/16 15:58 Antibiotics) [SULFA] - Past Medical History Past Medical History: Coronary Artery Disease, GERD, Hypertension - Past Surgical History Surgical History: Angioplasty/Stents - Family History Family Medical History: Diabetes Mellitus, Coronary Artery Disease, Heart Failure, Hypertension - Social History Does patient currently use any type of tobacco product: No Have you used tobacco products in the last 12 months: No Type of Tobacco Use: None Does any household member use tobacco: No Alcohol Use: None Drug Use: None - Medications Home Medications: Acyclovir 1 tab PO QID 12/03/16 [History Confirmed 12/03/16] Alprazolam [Xanax 1 mg] 1 tab PO TID 12/03/16 [History Confirmed 12/03/16] Aspirin EC [ASPIRIN EC 81 MG *] 1 tab PO DAILY 12/03/16 [History Confirmed 12/03] Atorvastatin Calcium 1 tab PO DAILY 12/03/16 [History Confirmed 12/03/16] Carvedilol 1 tab PO BID 12/03/16 [History Confirmed 12/03/16] Citalopram Hydrobromide [Citalopram HBr] 1 tab PO DAILY 12/03/16 [History Confirmed 12/03/16] Clopidogrel Bisulfate [PLAVIX TAB 75 MG *] 1 tab PO DAILY 12/03/16 [History Confirmed 12/03/16] Dicyclomine HCl 1 tab PO DAILY PRN 12/03/16 [History Confirmed 12/03/16] Diltiazem HCl [Cardizem] 1 tab PO BID 12/03/16 [History Confirmed 12/03/16] Losartan Potassium 1 tab PO DAILY 12/03/16 [History Confirmed 12/03/16] Metoclopramide HCl [Reglan] 1 tab PO .BID BEFORE MEALS 12/03/16 [History Confirmed 12/03/16] Pantoprazole Sodium 1 tab PO DAILY 12/03/16 [History Confirmed 12/03/16] Tizanidine HCl 1 tab PO HS PRN 12/03/16 [History Confirmed 12/03/16] - Review of Systems Constitutional: No Symptoms Reported Eyes: No Symptoms Reported ENT: No Symptoms Reported Respiratory: See HPI, Shortness of Breath Cardiovascular: Chest Pain, See HPI Gastrointestinal: No Symptoms Reported Genitourinary: No Symptoms Reported Musculoskeletal: No Symptoms Reported Skin: No Symptoms Reported Neurological: No Symptoms Reported - Physical Exam Vital Signs: Temperature 98.4 F Pulse Rate [Left Brachial] 65 Respiratory Rate 20 Blood Pressure [Right Arm] 142/65 O2 Sat by Pulse Oximetry 98 Oriented: Normal Eyes: Normal Ear: Normal Nose: Normal Throat: Normal Respiratory: Clear Throughout Cardiovascular: Normal : Normal Auscultation: Bowel Sounds: Normal Palpation: Normal Tenderness: Normal Skin: Normal Musculoskeletal: Normal Psychiatric: Normal Affect: Normal Speech Pattern: Clear - Assessment/Plan (1) Chest pain Qualifiers: Chest pain type: unspecified Qualified Code(s): R07.9 - Chest pain, unspecified Status: Acute Plan: SERIAL CARDIAC ENZYMES AND EKGs, NITRO PRN PAIN, MORPHINE PRN PAIN, CONTINUE TO MONITOR LABS AND PATIENT.
--- NOTE | 2016-12-04 21:35 | PCM.PROG ---
Progress Note - Progress Note for Day of Date: 12/04/16 - Subjective Subjective: IS ALERT AND ORIENTED ON MORNING ROUNDS. SHE IS SITTING UP IN BED WITH DAUGHTER AT BEDSIDE. SHE CONTINUES WITH COMPLAINTS OF PAIN IN CHEST WHEN SHE TAKES A DEEP BREATH. LUNGS ARE CLEAR TO AUSCULTATION. VITALS THIS AM ARE 98.5-73-20-99%-146/68. CBC WNL EXCEPT HGB 9.4, HCT 29.2. CMP WNL EXCEPT CHLORIDE 108, GLUCOSE 111, CALCIUM 8.1, AST 51, ALK PHOS 137, ALBUMIN 2.8. CARDIAC ENZYMES WNL, MOST RECENT EKG REPORTS SINUS RHYTHM WITH RATE OF 68. WE WILL OBTAIN AN ECHO TODAY AND CONTINUE WITH CURRENT PLAN OF CARE. WE WILL RECHECK LABS AND FOLLOW UP WITH PATIENT IN AM. - Past Medical Family Social History Past Med/Fam/Surg Hx: No changes since H&P Allergies: Allergies codeine Allergy (Verified 12/03/16 15:58) levofloxacin [From Levaquin] Allergy (Verified 12/03/16 15:58) nalbuphine [From Nubain] Allergy (Verified 12/03/16 15:58) penicillin G Allergy (Verified 12/03/16 15:58) rifampin Allergy (Verified 12/03/16 15:58) Sulfa (Sulfonamide Antibiotics) [SULFA] Allergy (Verified 12/03/16 15:58) - Review of Systems ROS: No change since H&P - Vital Signs and I&O's Vital Signs: Temperature 97.8 F Pulse Rate [Left Brachial] 58 Pulse Rate 57 Respiratory Rate 18 Blood Pressure [Left Arm] 135/72 Blood Pressure [Right Arm] 96/51 Blood Pressure 154/74 O2 Sat by Pulse Oximetry 100 Intake and Output: Intake & Output 12/02/16 12/03/16 12/04/16 12/05/16 11:59 11:59 11:59 11:59 Intake Total 425 600 Balance 425 600 - Physical Exam Oriented: Normal Eyes: Normal Ear: Normal Nose: Normal Throat: Normal Respiratory: Normal Cardiovascular: Normal : Normal Auscultation: Bowel Sounds: Normal Palpation: Normal Tenderness: Normal Skin: Normal Musculoskeletal: Normal Psychiatric: Normal Affect: Normal Speech Pattern: Clear - Laboratory and Diagnostics Result Diagrams: 12/04/16 05:00 12/04/16 05:00 Labs: Laboratory WBC 5.3 X10^3/uL (3.6-10.0) 12/04/16 05:00 RBC 3.82 X10^6/uL (3.5-5.4) 12/04/16 05:00 Hgb 9.4 g/dL (12.0-16.0) L 12/04/16 05:00 Hct 29.2 % (36.0-47.0) L 12/04/16 05:00 MCV 76.4 fL (80.0-100.0) L 12/04/16 05:00 MCH 24.6 pg (27.0-34.0) L 12/04/16 05:00 MCHC 32.2 g/dL (33.0-35.0) L 12/04/16 05:00 RDW 15.8 % (11.6-16.5) 12/04/16 05:00 Plt Count 184 X10^3/uL (150.0-450.0) 12/04/16 05:00 Plt Count Comment Adequate (ADEQUATE) 12/04/16 05:00 MPV 8.5 fL (7.4-11.0) 12/04/16 05:00 Neut % 59.7 % (42.0-75.0) 12/04/16 05:00 Lymph % 25.2 % (21.0-51.0) 12/04/16 05:00 [place] % 10.9 % (0.0-13.0) 12/04/16 05:00 Eos % 3.2 % (0.9-2.9) H 12/04/16 05:00 Baso % 1.0 % (0.2-1.0) 12/04/16 05:00 Neut # 3.2 x10^3/uL (2.2-4.8) 12/04/16 05:00 Lymph # 1.3 X10^3/uL (1.3-2.9) 12/04/16 05:00 [place] # 0.6 x10^3/uL (0.3-0.8) 12/04/16 05:00 Eos # 0.2 x10^3/uL (0.0-0.2) 12/04/16 05:00 Baso # 0.1 X10^3/uL (0.0-0.1) 12/04/16 05:00 Absolute Nucleated RBC 0.1 /100WBC 12/04/16 05:00 Plt Morphology Comment Normal (NORMAL) 12/04/16 05:00 RBC Morphology Abnormal (NORMAL) A 12/04/16 05:00 Hypochromasia 1+ A 12/04/16 05:00 Microcytosis 1+ A 12/04/16 05:00 INR Target Range - 12/03/16 11:35 INR 1.02 (0.8-1.3) 12/03/16 11:35 PTT 29.3 SECONDS (22.9-36.5) 12/03/16 11:35 PTT Comment - 12/03/16 11:35 Sodium 141 mmol/L (136-145) 12/04/16 05:00 Corrected Sodium 141 mmol/L (136-145) 12/04/16 05:00 Potassium 4.4 mmol/L (3.5-5.1) 12/04/16 05:00 Chloride 108 mmol/L (98-107) H 12/04/16 05:00 Carbon Dioxide 31.2 mmol/L (21-32) 12/04/16 05:00 BUN 10 mg/dL (7-18) 12/04/16 05:00 Creatinine 0.79 mg/dL (0.55-1.02) 12/04/16 05:00 Est GFR (MDRD) Af Amer > 60 (>60) 12/04/16 05:00 Est GFR (MDRD) Non-Af > 60 (>60) 12/04/16 05:00 Glucose 111 mg/dL (65-99) H 12/04/16 05:00 Calcium 8.1 mg/dL (8.5-10.1) L 12/04/16 05:00 Corrected Calcium 9.1 mg/dL (8.5-10.1) 12/04/16 05:00 Phosphorus 3.7 mg/dL (2.6-4.7) 12/03/16 11:35 Magnesium 1.9 mg/dL (1.7-2.9) 12/03/16 11:35 Total Bilirubin 0.90 mg/dL (0.2-1.0) 12/04/16 05:00 AST 51 Units/L (15-37) H 12/04/16 05:00 ALT 41 Units/L (12-78) 12/04/16 05:00 Alkaline Phosphatase 137 Units/L (46-116) H 12/04/16 05:00 Creatine Kinase 69 Units/L (26-192) 12/03/16 21:35 CK-MB (CK-2) < 1.0 ng/mL (0-4.0) 12/03/16 21:35 CK/CKMB % Calc 1.5 % (<4) 12/03/16 21:35 Troponin I < 0.02 ng/mL (0-1.5) 12/03/16 21:35 Total Protein 6.5 g/dL (6.4-8.2) 12/04/16 05:00 Albumin 2.8 g/dL (3.4-5.0) L 12/04/16 05:00 Globulin 3.7 g/dL (2.5-4.5) 12/04/16 05:00 Albumin/Globulin Ratio 0.8 Ratio (1.1-2.1) L 12/04/16 05:00 Triglycerides 103 mg/dL (0-150) 12/04/16 05:00 Cholesterol 131 mg/dL (0-200) 12/04/16 05:00 LDL Cholesterol, Calc 60 mg/dL (0-100) 12/04/16 05:00 HDL Cholesterol 50 mg/dL (40-60) 12/04/16 05:00 Cholesterol/HDL Ratio 2.6 (0.0-5.0) 12/04/16 05:00 - Plan (1) Chest pain Status: Acute Qualifiers: Chest pain type: unspecified Qualified Code(s): R07.9 - Chest pain, unspecified Plan: CHECK ECHO, NITRO PRN PAIN, MORPHINE PRN PAIN, CONTINUE TO MONITOR LABS AND PATIENT.
[2016-12-05] MEDS: XANAX PO SCH (05:27)
[2016-12-05 06:02] LABS: ALANINE AMINOTRANSFERASE 28 Units/L (12-78); ALBUMIN 2.8 g/dL (3.4-5.0); ALKALINE PHOSPHATASE 119 Units/L (46-116); ASPARTATE AMINO TRANSFERASE 22 Units/L (15-37); BLOOD UREA NITROGEN 7 mg/dL (7-18); CALCIUM 8.1 mg/dL (8.5-10.1); CARBON DIOXIDE 28.4 mmol/L (21-32); CHLORIDE 110 mmol/L (98-107); COR CA(FOR HYPOALB) 9.1 mg/dL (8.5-10.1); GLUCOSE 106 mg/dL (65-99); SODIUM 144 mmol/L (136-145); TOTAL PROTEIN 6.3 g/dL (6.4-8.2); eGFR BLACK RACES > 60 (>60); eGFR NON BLACK RACES > 60 (>60)
[2016-12-05 06:24] LABS: BASOPHILS % (AUTO) 0.9 % (0.2-1.0); EOSINOPHILS # (AUTO) 0.2 x10^3/uL (0.0-0.2); EOSINOPHILS % (AUTO) 3.2 % (0.9-2.9); HEMATOCRIT 26.2 % (36.0-47.0); HEMOGLOBIN 8.6 g/dL (12.0-16.0); LYMPHOCYTES # (AUTO) 1.8 X10^3/uL (1.3-2.9); LYMPHOCYTES % (AUTO) 33.7 % (21.0-51.0); MEAN CORPUSCULAR HEMOGLOBIN 24.9 pg (27.0-34.0); MEAN CORPUSCULAR HGB CONC 32.9 g/dL (33.0-35.0); MEAN CORPUSCULAR VOLUME 75.6 fL (80.0-100.0); MEAN PLATELET VOLUME 8.9 fL (7.4-11.0); MONOCYTES # (AUTO) 0.5 x10^3/uL (0.3-0.8); MONOCYTES % (AUTO) 9.4 % (0.0-13.0); NEUTROPHILS # (AUTO) 2.8 x10^3/uL (2.2-4.8); NEUTROPHILS % (AUTO) 52.8 % (42.0-75.0); PLATELET COUNT 171 X10^3/uL (150.0-450.0); RED BLOOD COUNT 3.47 X10^6/uL (3.5-5.4); RED CELL DISTRIBUTION WIDTH 15.6 % (11.6-16.5); WHITE BLOOD COUNT 5.2 X10^3/uL (3.6-10.0)
[2016-12-05] MEDS: NS 1000 ML 1,000 ML IV SCH (06:25)
[2016-12-05 06:57] LABS: PLATELET MORPHOLOGY COMMENT NORMAL (NORMAL)
--- NOTE | 2016-12-05 07:46 | RAD ---
HISTORY: Shortness of breath Study: Single view of the chest. Comparison: 12/03/2016 Findings: The cardiomediastinal silhouette is normal. No focal consolidations, pleural effusions or pneumothora x. Osseous structures demonstrate no acute abnormality. school health assistant obscures the right urmila thorax . IMPRESSION: 1. No acute cardiopulmonary process. Reported By:
[2016-12-05] MEDS: CARDIZEM TAB 30 MG PLAIN PO SCH (08:26)
[2016-12-05] MEDS: ASPIRIN EC 81 MG PO SCH (08:26)
[2016-12-05] MEDS: BENTYL CAP 10 MG PO SCH (08:26)
[2016-12-05] MEDS: COREG TAB 12.5 MG PO SCH (08:27)
[2016-12-05] MEDS: LIPITOR TAB 40 MG PO SCH (08:27)
[2016-12-05] MEDS: COZAAR PO SCH (08:27)
[2016-12-05] MEDS: CELEXA PO SCH (08:27)
[2016-12-05] MEDS: PLAVIX PO SCH (08:27)
[2016-12-05] MEDS: PROTONIX TAB 40 MG PO SCH (08:32)
[2016-12-05] MEDS: REGLAN TAB 5 MG PO SCH (08:32)
[2016-12-05 09:19] VITALS: BP 157/70
== END 2016-12-05 11:15 | disposition home or self-care (01) ==
LOC: ER 11:50 → MED/SURG 13:48
PROVIDERS: ADMIT Internal Medicine; ATTEND Internal Medicine
DX: R07.89 Other chest pain (principal); D64.89 Other specified anemias; I25.10 Atherosclerotic heart disease of native coronary artery without angina pectoris; K21.9 Gastro-esophageal reflux disease without esophagitis; I10 Essential (primary) hypertension; I51.7 Cardiomegaly; R06.02 Shortness of breath; R94.31 Abnormal electrocardiogram [ECG] [EKG]; Z79.01 Long term (current) use of anticoagulants; R74.8 Abnormal levels of other serum enzymes
CPT/HCPCS: 36415; 71010; 80053; 80061; 82550; 82553; 83735; 84100; 84484; 85025; 85610; 85730; 93005; 93010; 93306; 94760; 96374; 99284; A4216; A4222; G0378; J2270

== ENCOUNTER 2017-02-02 20:30 | Observation (INO) | payer OTHER ==
--- NOTE | 2017-02-02 21:44 | DR.GENAD ---
HPI - PCP Primary Care Physician: lucero - HPI Comment HPI Comment: HISTORY BELOW. - Complaint/Symptoms Chief Complaint Doctors Comments: CHEST PAIN, NUMBNESS RIGHT FACE AND RIGHT UPPER EXTREMITY. STARTED WHEN PATIENT WAS SITTING DOWN WATCHING TV. SENSATION NOT GOING AWAY. CHEST TIGHTNESS STARTED AT THE SAME TIME. NO SPEECH DISTURBANCES. Chief Complaint:: tingling sensation across chest. cold numbness sensation on right side of head /face and left palm started 40mins to an hour ago. 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, Hysterectomy , Ortho Surgery Past Surgical History Comment: hernia repairs - Family History History of Family Medical Conditions: Yes Family Medical History: Diabetes Mellitus, Cancer, [place], Coronary Artery Disease, Hypertension - Social History Does patient currently use any type of tobacco product: No Have you used tobacco products in the last 12 months: No Type of Tobacco Use: Cigarettes How many years tobacco product used: 20 Does any household member use tobacco: No Alcohol Use: None Do you use any recreational Drugs:: No Lives With: Spouse Lives Where: Home - infectious screening In the last 2 months have you had wt loss of >10#?: NO Have you had fever, night sweats or hemotysis?: No Have you traveled outside the country in the last 6 months?: No Isolation: Standard ROS - Review of Systems Constitutional: No Symptoms Reported Eyes: No Symptoms Reported ENTM: No Symptoms Reported Respiratoy: Short of Breath. negative: Productive Cough, Non-Productive Cough, Wheezing, Hemoptysis Cardiovascular: Chest Pain Gastrointestinal/Abdominal: No Symptoms Reported Genitourinary: No Symptoms Reported Neurological: Headache, Numbness, Paresthesia, Dizziness Musculoskeletal: No Symptoms Reported Integumentary: No Symptoms Reported Hematologic/Lymphatic: No Symptoms Reported Endocrine: No Symptoms Reported All Other Systems: Reviewed and Negative PE - Vital Signs Vitals: Temperature 97.8 F Pulse Rate 68 Respiratory Rate 24 Blood Pressure [Left Arm] 135/72 Blood Pressure [Right Arm] 157/70 Blood Pressure 145/67 O2 Sat by Pulse Oximetry 99 - General Limitations: No Limitations General Appearance: Alert - Head Head Exam: Normal Inspection - Eyes Eye exam: Normal Appearance - ENT ENT Exam: Normal External Ear Exam External Ear Exam: Normal External Inspection TM/Canal Exam: Bilateral Normal Nose Exam: Normal Nose Exam Mouth Exam: Normal Inspection Throat Exam: Normal Inspection - Neck Neck Exam: Trachea Midline - Chest Chest Inspection: Symmetric Chest Wall Rise - Respiratory Respiratory Exam: Normal Lung Sounds Bilat Respiratory Exam: Bilateral Clear to Auscultation - Cardiovascular Cardiovascular Exam: Regular Rate, Normal Rhythm, Normal Heart Sounds - Abdominal Exam Abdominal Exam: Normal Bowel Sounds, Soft. negative: Tenderness - Extremities Extremities Exam: Normal Inspection - Back Back Exam: Normal Inspection - Neurologic Neurological Exam: Oriented X3, CN II-XII Intact, Normal Gait, Reflexes Normal. negative: Motor Sensory Deficit - Psychiatric Psychiatric Exam: Normal Affect, Normal Mood - Skin Skin Exam: Normal Color MDM - Additional Information Additional Information Obtained From: Family - Differential Diagnosis Differential Diagnosis: PARESTHESIA RT FACE AND RUE, CHEST PAIN Course - Treatment Treatment: SEE ORDERS. - Consultation Consultation Comments: DISCUSS PATIENT WITH DR. PALACIO. HE WILL ADMIT PATIENT. - Education/Counseling Education/Counseling: Patient, Family, Education Educated On: Diagnosis ROR - Labs Reviewed Laboratory Results Reviewed?: Yes Result Diagrams: 02/04/17 04:38 02/04/17 04:38 Laboratory: WBC 8.8 X10^3/uL (3.6-10.0) 02/02/17 22:00 RBC 4.35 X10^6/uL (3.5-5.4) 02/02/17 22:00 Hgb 11.0 g/dL (12.0-16.0) L 02/02/17 22:00 Hct 33.1 % (36.0-47.0) L 02/02/17 22:00 MCV 76.1 fL (80.0-100.0) L 02/02/17 22:00 MCH 25.4 pg (27.0-34.0) L 02/02/17 22:00 MCHC 33.4 g/dL (33.0-35.0) 02/02/17 22:00 RDW 18.6 % (11.6-16.5) H 02/02/17 22:00 Plt Count 233 X10^3/uL (150.0-450.0) 02/02/17 22:00 Plt Count Comment Adequate (ADEQUATE) 02/02/17 22:00 MPV 8.6 fL (7.4-11.0) 02/02/17 22:00 Neut % 58.0 % (42.0-75.0) 02/02/17 22: Lymph % 27.2 % (21.0-51.0) 02/02/17 22:00 [place] % 11.3 % (0.0-13.0) 02/02/17 22:00 Eos % 2.7 % (0.9-2.9) 02/02/17 22:00 Baso % 0.8 % (0.2-1.0) 02/02/17 22:00 Neut # 5.1 x10^3/uL (2.2-4.8) H 02/02/17 22:00 Lymph # 2.4 X10^3/uL (1.3-2.9) 02/02/17 22:00 [place] # 1.0 x10^3/uL (0.3-0.8) H 02/02/17 22:00 Eos # 0.2 x10^3/uL (0.0-0.2) 02/02/17 22:00 Baso # 0.1 X10^3/uL (0.0-0.1) 02/02/17 22:00 Absolute Nucleated RBC 0.0 /100WBC 02/02/17:00 Plt Morphology Comment Normal (NORMAL) 02/02/17 22:00 RBC Morphology Abnormal (NORMAL) A 02/02/17:00 Ovalocytes Noted 02/02/17:00 INR Target Range - 02/02/17:00 INR 0.98 (0.8-1.3) 02/02/17 22:00 PTT 27.5 SECONDS (22.9-36.5) 02/02/17 22:00 PTT Comment - 02/02/17 22:00 Sodium 141 mmol/L (136-145) 02/02/17:00 Corrected Sodium TNP 02/02/17: Potassium 3.9 mmol/L (3.5-5.1) 02/02/17 22:00 Chloride 105 mmol/L (98-107) 02/02/17 22:00 Carbon Dioxide 26.2 mmol/L (21-32) 02/02/17 22:00 BUN 10 mg/dL (7-18) 02/02/17 22:00 Creatinine 0.96 mg/dL (0.55-1.02) 02/02/17 22:00 Est GFR (MDRD) Af Amer > 60 (>60) 02/02/17 22:00 Est GFR (MDRD) Non-Af > 60 (>60) 02/02/17 22:00 Glucose 98 mg/dL (65-99) 02/02/17 22:00 Calcium 9.1 mg/dL (8.5-10.1) 02/02/17 22:00 Corrected Calcium 9.7 mg/dL (8.5-10.1) 02/02/17 22:00 Total Bilirubin 0.50 mg/dL (0.2-1.0) 02/02/17 22:00 AST 21 Units/L (15-37) 02/02/17 22:00 ALT 31 Units/L (12-78) 02/02/17 22:00 Alkaline Phosphatase 147 Units/L (46-116) H 02/02/17 22:00 Creatine Kinase 101 Units/L (26-192) 02/02/17 22:00 CK-MB (CK-2) < 1.0 ng/mL (0-4.0) 02/02/17 22:00 CK/CKMB % Calc 1.0 % (<4) 02/02/17 22:00 Troponin I < 0.02 ng/mL (0-1.5) 02/02/17 22:00 Total Protein 7.7 g/dL (6.4-8.2) 02/02/17 22:00 Albumin 3.3 g/dL (3.4-5.0) L 02/02/17 22:00 Globulin 4.4 g/dL (2.5-4.5) 02/02/17 22:00 Albumin/Globulin Ratio 0.8 Ratio (1.1-2.1) L 02/02/17 22:00 Specimen Type Clean catch urine 02/02/17 22:14 Urine Color Yellow (YELLOW) 02/02/17 22:14 Urine Appearance Clear (CLEAR) 02/02/17 22:14 Urine pH 6.5 (5.0 - 8.0) 02/02/17 22:14 Ur Specific [place] 1.010 (1.000-1.030) 02/02/17 22:14 Urine Protein Negative (NEGATIVE) 02/02/17 22:14 Urine Glucose (UA) Negative (NEGATIVE) 02/02/17 22:14 Urine Ketones Negative (NEGATIVE) 02/02/17 22:14 Urine Occult Blood Negative (NEGATIVE) 02/02/17 22:14 Urine Nitrite Negative (NEGATIVE) 02/02/17 22:14 Urine Bilirubin Negative (NEGATIVE) 02/02/17 22:14 Urine Urobilinogen Normal (NORMAL) 02/02/17 22:14 Ur Leukocyte Esterase Negative (NEGATIVE) 02/02/17 22:14 Urine RBC None seen /HPF (NEGATIVE) 02/02/17 22:14 Urine WBC 0-1 /HPF (NEGATIVE) 02/02/17 22:14 Ur Squamous Epith Cells Rare /HPF (NEGATIVE) 02/02/17 22:14 Urine Bacteria Negative /HPF (NEGATIVE) 02/02/17 22:14 Ur Culture Indicated? No/not indicated 02/02/17 22:14 - XRAY XRAY Interpreted by: Radiologist XRAY Findings: REPORT DISCUSS WITH PATIENT. - Diagnosis Discharge Problem: Paresthesia Chest pain Qualifiers: Chest pain type: precordial pain Qualified Code(s): R07.2 - Precordial pain - Discharge Plan Disposition: 09 ADMITTED INPATIENT Condition: Stable - Follow ups/Referrals - Instructions
--- NOTE | 2017-02-02 22:01 | CT ---
CT brain without contrast Indication: Right-sided numbness Comparison: None available Technique: Multiple axial images of the brain were obtained from the skull base to the vertex without administra tion of IV contrast. Findings: No acute intraparenchymal hemorrhage or mass can be identified. No extra-axial fluid collections are seen. No alteration in the attenuation of the brain parenchyma can be identified to suggest acute o r subacute ischemic change. The ventricular system is symmetric and nondilated. The extracranial st ructures are grossly unremarkable. IMPRESSION: 1. No acute intracranial process is identified. Reported By:
--- NOTE | 2017-02-02 22:04 | RAD ---
HISTORY: Chest pain. Study: Single-view chest. Comparison: 12/05/2016. Findings: The trachea is midline. The cardiac silhouette is within normal limits. The lungs are clear without focal infiltrate or effusion. Right shoulder hemiarthroplasty is present. The bony thorax is unrema rkable. IMPRESSION: No acute cardiopulmonary disease. Reported By:
[2017-02-02 22:09] LABS: BASOPHILS # (AUTO) 0.1 X10^3/uL (0.0-0.1); BASOPHILS % (AUTO) 0.8 % (0.2-1.0); EOSINOPHILS # (AUTO) 0.2 x10^3/uL (0.0-0.2); EOSINOPHILS % (AUTO) 2.7 % (0.9-2.9); HEMATOCRIT 33.1 % (36.0-47.0); LYMPHOCYTES # (AUTO) 2.4 X10^3/uL (1.3-2.9); LYMPHOCYTES % (AUTO) 27.2 % (21.0-51.0); MEAN CORPUSCULAR HEMOGLOBIN 25.4 pg (27.0-34.0); MEAN CORPUSCULAR HGB CONC 33.4 g/dL (33.0-35.0); MEAN CORPUSCULAR VOLUME 76.1 fL (80.0-100.0); MEAN PLATELET VOLUME 8.6 fL (7.4-11.0); MONOCYTES % (AUTO) 11.3 % (0.0-13.0); NEUTROPHILS # (AUTO) 5.1 x10^3/uL (2.2-4.8); PLATELET COUNT 233 X10^3/uL (150.0-450.0); RED BLOOD COUNT 4.35 X10^6/uL (3.5-5.4); RED CELL DISTRIBUTION WIDTH 18.6 % (11.6-16.5); WHITE BLOOD COUNT 8.8 X10^3/uL (3.6-10.0)
[2017-02-02 22:26] LABS: BLOOD UREA NITROGEN 10 mg/dL (7-18); CALCIUM 9.1 mg/dL (8.5-10.1); CARBON DIOXIDE 26.2 mmol/L (21-32); CHLORIDE 105 mmol/L (98-107); CREATININE 0.96 mg/dL (0.55-1.02); SODIUM 141 mmol/L (136-145); TROPONIN I < 0.02 ng/mL (0-1.5); eGFR BLACK RACES > 60 (>60); eGFR NON BLACK RACES > 60 (>60)
[2017-02-02 22:29] LABS: BILIRUBIN,URINE NEGATIVE (NEGATIVE); BLOOD/HEMOGLOBIN,URINE NEGATIVE (NEGATIVE); GLUCOSE, URINE NEGATIVE (NEGATIVE); KETONES,URINE NEGATIVE (NEGATIVE); LEUKOCYTE ESTERASE ,URINE NEGATIVE (NEGATIVE); NITRITES,URINE NEGATIVE (NEGATIVE); PH,URINE 6.5 (5.0 - 8.0); PROTEIN,URINE NEGATIVE (NEGATIVE); UROBILINOGEN,URINE NORMAL (NORMAL)
[2017-02-02 22:30] LABS: ALANINE AMINOTRANSFERASE 31 Units/L (12-78); ALBUMIN 3.3 g/dL (3.4-5.0); ALKALINE PHOSPHATASE 147 Units/L (46-116); ASPARTATE AMINO TRANSFERASE 21 Units/L (15-37); COR CA(FOR HYPOALB) 9.7 mg/dL (8.5-10.1); CREATINE KINASE 101 Units/L (26-192); CREATINE KINASE MB < 1.0 ng/mL (0-4.0); OVALOCYTES NOTED; PLATELET MORPHOLOGY COMMENT NORMAL (NORMAL); TOTAL PROTEIN 7.7 g/dL (6.4-8.2)
[2017-02-02 22:44] LABS: APPEARANCE,URINE CLEAR (CLEAR); BACTERIA,URINE NEGATIVE /HPF (NEGATIVE); COLOR,URINE YELLOW (YELLOW); RBC,URINE NONE SEEN /HPF (NEGATIVE); SQUAMOUS EPITHELIAL CELL,UR RARE /HPF (NEGATIVE)
[2017-02-03] MEDS: ASPIRIN PO SCH ×2 (00:47→12:44)
[2017-02-03] MEDS: NS 1000 ML 1,000 ML IV SCH ×2 (01:10→12:44)
[2017-02-03] MEDS ORDERED: FLUVIRIN IM ONE (04:57)
[2017-02-03 06:48] LABS: ALANINE AMINOTRANSFERASE 26 Units/L (12-78); ALKALINE PHOSPHATASE 123 Units/L (46-116); ASPARTATE AMINO TRANSFERASE 20 Units/L (15-37); BLOOD UREA NITROGEN 9 mg/dL (7-18); CALCIUM 8.9 mg/dL (8.5-10.1); CARBON DIOXIDE 27.8 mmol/L (21-32); CHLORIDE 107 mmol/L (98-107); COR CA(FOR HYPOALB) 9.7 mg/dL (8.5-10.1); COR NA(FOR HYPERGLY) 143 mmol/L (136-145); CREATININE 0.83 mg/dL (0.55-1.02); SODIUM 143 mmol/L (136-145); TOTAL PROTEIN 6.9 g/dL (6.4-8.2); eGFR BLACK RACES > 60 (>60); eGFR NON BLACK RACES > 60 (>60)
[2017-02-03 06:58] LABS: BASOPHILS % (AUTO) 0.6 % (0.2-1.0); EOSINOPHILS # (AUTO) 0.2 x10^3/uL (0.0-0.2); EOSINOPHILS % (AUTO) 2.4 % (0.9-2.9); HEMATOCRIT 31.7 % (36.0-47.0); HEMOGLOBIN 10.6 g/dL (12.0-16.0); LYMPHOCYTES # (AUTO) 2.5 X10^3/uL (1.3-2.9); LYMPHOCYTES % (AUTO) 35.1 % (21.0-51.0); MEAN CORPUSCULAR HEMOGLOBIN 25.5 pg (27.0-34.0); MEAN CORPUSCULAR HGB CONC 33.5 g/dL (33.0-35.0); MEAN CORPUSCULAR VOLUME 76.1 fL (80.0-100.0); MEAN PLATELET VOLUME 8.7 fL (7.4-11.0); MONOCYTES # (AUTO) 0.7 x10^3/uL (0.3-0.8); MONOCYTES % (AUTO) 9.4 % (0.0-13.0); NEUTROPHILS # (AUTO) 3.8 x10^3/uL (2.2-4.8); NEUTROPHILS % (AUTO) 52.5 % (42.0-75.0); PLATELET COUNT 204 X10^3/uL (150.0-450.0); RED BLOOD COUNT 4.17 X10^6/uL (3.5-5.4); RED CELL DISTRIBUTION WIDTH 18.7 % (11.6-16.5); WHITE BLOOD COUNT 7.3 X10^3/uL (3.6-10.0)
[2017-02-03 07:11] LABS: CKMB % 1.1 % (<4); CREATINE KINASE 88 Units/L (26-192); CREATINE KINASE MB < 1.0 ng/mL (0-4.0); TROPONIN I < 0.02 ng/mL (0-1.5)
[2017-02-03 07:25] LABS: PLATELET MORPHOLOGY COMMENT NORMAL (NORMAL)
[2017-02-03] MEDS ORDERED: ZOVIRAX PO PRN (11:04)
[2017-02-03] MEDS ORDERED: ZANAFLEX PO PRN (11:04)
[2017-02-03] MEDS ORDERED: PATIENT'S HOME MEDICATION (Dicyclomine Hcl [Dicyclomine Hcl] 1 TAB) PO PRN (11:04)
[2017-02-03] MEDS ORDERED: DILTIAZEM HCL PO SCH (11:15)
[2017-02-03] MEDS ORDERED: CITALOPRAM HYDROBROMIDE PO SCH (11:15)
[2017-02-03] MEDS ORDERED: XANAX PO PRN (11:16)
[2017-02-03] MEDS ORDERED: BENTYL CAP 10 MG PO PRN (11:17)
[2017-02-03 11:38] LABS: CKMB % 1.1 % (<4); CREATINE KINASE 92 Units/L (26-192); CREATINE KINASE MB < 1.0 ng/mL (0-4.0); TROPONIN I < 0.02 ng/mL (0-1.5)
[2017-02-03] MEDS ORDERED: REGLAN TAB 5 MG PO SCH (12:00)
[2017-02-03] MEDS ORDERED: LIPITOR TAB 40 MG PO SCH ×2 (12:00→21:00)
[2017-02-03] MEDS: CARDIZEM TAB 30 MG PLAIN PO SCH ×2 (12:44→23:18)
[2017-02-03] MEDS: PLAVIX PO SCH (12:47)
--- NOTE | 2017-02-03 13:04 | MRI ---
MRA HEAD WITHOUT CONTRAST CLINICAL HISTORY: 66-year-old female with blurred vision, headache and right-sided facial numbness wi th tingling. COMPARISONS: None. TECHNIQUE: 3-D time of flight magnetic resonance angiographic images of the havas[place] of [place] were obt ained and presented as maximum intensity projection images in rotating format. FINDINGS: Left dominant vertebral artery. The basilar artery is normal in appearance and gives off normal bilat eral AICA superior cerebellar and posterior cerebral arteries. The internal carotid arteries are norm al from the distal cervical segments to the carotid terminus. There are small caliber posterior commu nicating arteries bilaterally. The middle and anterior cerebral arteries are normal in course and osmel iber. There is a small caliber anterior communicating artery. IMPRESSION: No aneurysm, high-grade stenosis, complete occlusion, dissection or vascular malformation. Reported By:
--- NOTE | 2017-02-03 13:07 | MRI ---
STUDY: MRI OF THE BRAIN WITHOUT AND WITH GADOLINIUM HISTORY: Paresthesias, blurred vision, headache. Right-sided facial numbness and tingling. Chest gerald n. Technique: Multiplanar multi-sequence MRI of the brain was obtained utilizing standard departmental p rotocol. Sagittal and axial T1, axial T2, FLAIR, diffusion (DWI/ADC) images through the brain were pe rformed. 20 cc of Omniscan was administered intravenously without reported complication following acquisition of informed written consent. Post gadolinium axial and coronal T1 weighted images were also performed and reviewed. Comparison: Head CT from 02/02/2017. Findings: Pre gadolinium brain: The sulci, cisterns and ventricles are age appropriate. There are confluent and scattered foci of T2 prolongation in the periventricular and subcortical white matter of both hemisp heres. This is a nonspecific finding which likely represents microangiopathic change in a patient of this age. There is no evidence of acute territorial infarction, hemorrhage, mass, mass effect, or midline shift . There are no abnormal intra-axial or extra-axial fluid collections. The major intracranial vascular flow voids appear intact. The vertebral arteries are codominant. Post gadolinium brain: Following the uneventful administration of intravenous gadolinium, there is no evidence of abnormal parenchymal or leptomeningeal enhancement. IMPRESSION: 1. No evidence of acute intracranial abnormality. 2. Mild nonspecific white matter change. Reported By:
[2017-02-03] MEDS ORDERED: PATIENT'S HOME MEDICATION (Alprazolam [Xanax 1 Mg] 1 TAB) PO SCH (14:00)
[2017-02-03 15:30] VITALS: BMI 43.8
[2017-02-03 17:26] LABS: CKMB % 1.2 % (<4); CREATINE KINASE 84 Units/L (26-192); CREATINE KINASE MB < 1.0 ng/mL (0-4.0); TROPONIN I < 0.02 ng/mL (0-1.5)
[2017-02-03] MEDS: COREG TAB 12.5 MG PO SCH (20:36)
[2017-02-03] MEDS ORDERED: PATIENT'S HOME MEDICATION PO SCH (21:00)
[2017-02-03 22:54] LABS: CKMB % 1.3 % (<4); CREATINE KINASE 78 Units/L (26-192); CREATINE KINASE MB < 1.0 ng/mL (0-4.0); TROPONIN I < 0.02 ng/mL (0-1.5)
[2017-02-04 04:49] LABS: BASOPHILS # (AUTO) 0.1 X10^3/uL (0.0-0.1); EOSINOPHILS # (AUTO) 0.2 x10^3/uL (0.0-0.2); EOSINOPHILS % (AUTO) 2.9 % (0.9-2.9); HEMATOCRIT 32.2 % (36.0-47.0); HEMOGLOBIN 10.6 g/dL (12.0-16.0); LYMPHOCYTES # (AUTO) 2.5 X10^3/uL (1.3-2.9); LYMPHOCYTES % (AUTO) 36.5 % (21.0-51.0); MEAN CORPUSCULAR HEMOGLOBIN 25.3 pg (27.0-34.0); MEAN CORPUSCULAR HGB CONC 33.1 g/dL (33.0-35.0); MEAN CORPUSCULAR VOLUME 76.5 fL (80.0-100.0); MEAN PLATELET VOLUME 8.5 fL (7.4-11.0); MONOCYTES # (AUTO) 0.7 x10^3/uL (0.3-0.8); MONOCYTES % (AUTO) 9.7 % (0.0-13.0); NEUTROPHILS # (AUTO) 3.4 x10^3/uL (2.2-4.8); NEUTROPHILS % (AUTO) 49.9 % (42.0-75.0); PLATELET COUNT 213 X10^3/uL (150.0-450.0); RED BLOOD COUNT 4.21 X10^6/uL (3.5-5.4); RED CELL DISTRIBUTION WIDTH 19.2 % (11.6-16.5); WHITE BLOOD COUNT 6.9 X10^3/uL (3.6-10.0)
[2017-02-04 05:04] LABS: ALANINE AMINOTRANSFERASE 23 Units/L (12-78); ALKALINE PHOSPHATASE 117 Units/L (46-116); ASPARTATE AMINO TRANSFERASE 18 Units/L (15-37); BLOOD UREA NITROGEN 8 mg/dL (7-18); CALCIUM 8.8 mg/dL (8.5-10.1); CARBON DIOXIDE 26.6 mmol/L (21-32); CHLORIDE 107 mmol/L (98-107); CKMB % 1.5 % (<4); COR CA(FOR HYPOALB) 9.6 mg/dL (8.5-10.1); COR NA(FOR HYPERGLY) 142 mmol/L (136-145); CREATINE KINASE 65 Units/L (26-192); CREATINE KINASE MB < 1.0 ng/mL (0-4.0); CREATININE 0.87 mg/dL (0.55-1.02); SODIUM 142 mmol/L (136-145); TOTAL PROTEIN 6.9 g/dL (6.4-8.2); TROPONIN I < 0.02 ng/mL (0-1.5); eGFR BLACK RACES > 60 (>60); eGFR NON BLACK RACES > 60 (>60)
[2017-02-04 05:42] LABS: PLATELET MORPHOLOGY COMMENT NORMAL (NORMAL)
--- NOTE | 2017-02-04 06:29 | VAS ---
HISTORY: Facial tingling, paresthesias, blurred vision, headache. Right-sided facial numbness and tin gling. Study: Bilateral carotid Doppler ultrasound Comparison: No priors Technique: Multiple chance scale and color flow Doppler images of the right and left carotid arterial s ystem were obtained. The vertebral arterial system was evaluated as well. Findings: Normal color flow Doppler is seen throughout the right and left carotid arterial system. Peak systol ic arterial velocity in the right ICA is 74.5 centimeters/second. Peak systolic arterial velocity in the left ICA is 97.5 centimeters/second. ICA/CCA ratios are as follows: On the right 1.11 and on the left 1.70. Mild atherosclerotic plaque formation is seen involving the carotid bulb and ICA and ECA r egions bilaterally. No hemodynamically significant stenosis is seen based on velocity criteria. The right and left vertebral arteries demonstrate antegrade flow. IMPRESSION: 1. No hemodynamically significant stenosis. Reported By:
--- NOTE | 2017-02-04 08:33 | RAD ---
HISTORY: Chest pain Study: Single-view of the chest Comparison: 02/02/2017 Findings: The trachea is midline. The cardiac silhouette is unremarkable. The lungs are clear without focal i nfiltrate or effusion. Postoperative changes of right shoulder arthroplasty partially visualized. IMPRESSION: 1. No acute cardiopulmonary disease. Reported By:
[2017-02-04] MEDS ORDERED: HEMOCYTE-PLUS PO SCH (09:00)
[2017-02-04] MEDS ORDERED: CELEXA PO SCH (09:00)
[2017-02-04] MEDS ORDERED: COZAAR PO SCH (09:00)
[2017-02-04] MEDS ORDERED: PROTONIX TAB 40 MG PO SCH (09:00)
[2017-02-04] MEDS: ASPIRIN PO SCH (09:39)
[2017-02-04] MEDS: CARDIZEM TAB 30 MG PLAIN PO SCH (09:39)
[2017-02-04] MEDS: PLAVIX PO SCH (09:39)
[2017-02-04] MEDS: COREG TAB 12.5 MG PO SCH (09:40)
[2017-02-04 12:45] VITALS: BP 119/63
--- NOTE | 2017-02-04 15:37 | DR.H&P ---
H&P - History & Physical for Day of: H&P Date: 02/02/17 - Chief Complaint Chief Complaint: CHEST PAIN, FACIAL AND HAND TINGLING - Allergies Allergies/Adverse Reactions: Allergies Allergy/AdvReac Type Severity Reaction Status Date / Time codeine Allergy Verified 12/03/16 15:58 levofloxacin [From Levaquin] Allergy Verified 12/03/16 15:58 nalbuphine [From Nubain] Allergy Verified 12/03/16 15:58 penicillin G Allergy Verified 12/03/16 15:58 rifampin Allergy Verified 12/03/16 15:58 Sulfa (Sulfonamide Allergy Verified 12/03/16 15:58 Antibiotics) [SULFA] - History of Present Illness History of Present Illness: Ms. Morales is a 66 year old patient of ours who presented to the emergency room with complaints of tingling across her chest. Patient reports a cold sensation to the right side of her head, face and left palm. Patient reports that symptoms started approximately 40minutes prior to arrival. Patient also reports an increased heartrate. She reports a history of cardiac stents and HTN. Associated symptoms are shortness of breath, chest pain , headache, numbness, paresthesia, and dizziness. On arrival to the ER, her vitals were 97.8, 68, 24, 99%RA, 145/67. Labs, chest xray, and brain ct were obtained. Abnormal lab values include the following: Hgb 11.0, Hct 33.1, MCV 76.1, MCH 25.4, RDW 18.6, Alk Phos 147, Albumin 3.3, A/G Ratio 0.8. Urinalysis reported: WBC 0-1, Squam Epith Cells Rare. Brain CT reported: No acute intracranial process is identified. Chest xray reported: No acute cardiopulmonary disease. Patient was given Aspirin 325mg and Normal saline at KVO in the ER. We admitted patient for further treatment and evaluation. We will follow up with serial cardiac enzymes and EKGs. We will obtain a brain MRI /MRA in the am and repeat labs. - Past Medical History Past Medical History: Anemia, Anxiety, Arthritis, Depression, Dyslipidemia, GERD , Hypertension - Past Surgical History Surgical History: Angioplasty/Stents, Cholecystectomy, PLANNING DIRECTOR Surgery, Hysterectomy , Ortho Surgery - Family History Family Medical History: Diabetes Mellitus, Cancer, [place], Coronary Artery Disease, Hypertension - Social History Does patient currently use any type of tobacco product: No Have you used tobacco products in the last 12 months: No Type of Tobacco Use: None How many years tobacco product used: 20 Does any household member use tobacco: No Alcohol Use: None Drug Use: None - Medications Home Medications: Misc Home Med [Patient's Home Medication] 1 cap PO BID 02/03/17 [History Confirmed 02/03/17] - Review of Systems Constitutional: No Symptoms Reported Eyes: No Symptoms Reported ENT: No Symptoms Reported Respiratory: Shortness of Breath, SOB with Excertion. denies: Cough, Sputum, Wheezing Cardiovascular: Chest Pain, See HPI, Light Headedness Gastrointestinal: No Symptoms Reported. denies: Abdominal Pain, Diarrhea, Hematochezia Genitourinary: No Symptoms Reported Musculoskeletal: No Symptoms Reported Skin: No Symptoms Reported Neurological: See HPI, Weakness, Numbness. denies: Change in Speech, Seizures - Physical Exam Vital Signs: Temperature 97.8 F Pulse Rate [Left] 62 Pulse Rate 68 Respiratory Rate 18 Blood Pressure [Left Arm] 119/63 Blood Pressure [Right Arm] 150/72 Blood Pressure 145/67 O2 Sat by Pulse Oximetry 97 Oriented: Normal Eyes: Normal. negative: Diplopia, Discharge, Photophobia Ear: Normal. negative: Abrasion, Laceration Nose: Normal. negative: Discharge Throat: Normal Respiratory: Clear Throughout Cardiovascular: Normal. negative: Murmur : Normal. negative: Dysuria, Hematuria Auscultation: Bowel Sounds: Normal Tenderness: Normal. negative: Rebound, Guarding, Rigidity Skin: Normal. negative: Diaphoresis, Wound, Bruising, Ecchymosis Musculoskeletal: Normal Psychiatric: Normal Mood Description: Calm Affect: Normal Speech Pattern: Clear - Assessment/Plan (1) Chest pain Qualifiers: Chest pain type: precordial pain Qualified Code(s): R07.2 - Precordial pain Status: Acute Plan: TELEMETRY, SUPPLEMENTAL OXYGEN, ASA 325MG PO DAILY, SERIAL CARDIAC ENZYMES AND EKGS, CONTINUE TO MONITOR
== END 2017-02-04 13:05 | disposition home or self-care (01) ==
LOC: ER 20:30 → OBS 23:21
PROVIDERS: ADMIT Internal Medicine; ATTEND Internal Medicine
DX: R07.89 Other chest pain (principal); R20.2 Paresthesia of skin; E78.2 Mixed hyperlipidemia; K21.9 Gastro-esophageal reflux disease without esophagitis; I10 Essential (primary) hypertension; M13.89 Other specified arthritis, multiple sites; R94.31 Abnormal electrocardiogram [ECG] [EKG]; D64.89 Other specified anemias; Z79.1 Long term (current) use of non-steroidal anti-inflammatories (NSAID)
CPT/HCPCS: 36415; 70450; 70544; 70553; 71010; 80053; 81001; 82550; 82553; 84484; 85025; 85610; 85730; 90686; 93005; 93880; 94760; 96365; 99284; A4222; G0378

== ENCOUNTER → 2017-08-19 | Outpatient (CLI) | payer OTHER, MEDICARE ==
--- NOTE | 2017-08-19 16:31 | MRI ---
MRI SPINE LUMBAR WITHOUT CONTRAST CLINICAL HISTORY: 67-year-old female with low back pain. COMPARISON: MR lumbar spine 09/12/2014. Technique: Multiplanar, multisequence MRI images of the lumbar spine were obtained without the admin istration of contrast. FINDINGS: The most caudad, fully-formed intervertebral disc will be labeled L5-S1 for the purpose of this dictation and in keeping with prior imaging. There is normal lumbar lordosis. Degenerative retro listhesis L2 on L3. Vertebral body heights are preserved with loss of disc space and signal L2-L3. Mi xed type 1 and type 2 endplate changes posteriorly L2-L3 with the remaining marrow signal and disc si gnal unremarkable. Cord signal is normal. The conus medullaris is normal in signal characteristics an d morphology and terminates at the L1-2 level. T11-T12: No central canal or neural foraminal stenosis. T12-L1: No central canal or neural foraminal stenosis. L1-L2: No central canal or neural foraminal stenosis. L2-L3: Degenerative retrolisthesis with large symmetric disc bulge and severe facet arthropathy produ girma moderate left neural foraminal stenosis and severe bilateral subarticular recess stenosis. No goldie tral canal stenosis. Flattening of the ventral dorsal aspects of the transiting L3 nerve roots with m ild flattening of the ventral dorsal aspects of the exiting left L2 nerve root. L3-L4: Large symmetric disc bulge and severe facet arthropathy without central canal stenosis. Mild b ilateral neural foraminal stenosis. L4-L5: Large symmetric disc bulge with severe facet arthropathy. No central canal stenosis. Moderate right and mild left neural foraminal stenosis with flattening of the ventral dorsal aspect of the exi ting right L4 nerve root. L5-S1: Large symmetric disc bulge with severe facet arthropathy. Moderate right neural foraminal sten osis with flattening of the ventral dorsal aspect of the exiting right L5 nerve root. No central gage l stenosis. Stable bilateral simple appearing renal cysts. Remaining paraspinous soft tissues unremarkable. IMPRESSION: 1. 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 2. See level by level descriptions above. Reported By:
== END | disposition home or self-care (01) | DRG 552 ==
LOC: RAD 12:45
PROVIDERS: ATTEND Neurological Surgery
DX: M47.26 Other spondylosis with radiculopathy, lumbar region (principal); M51.36 Other intervertebral disc degeneration, lumbar region
CPT/HCPCS: 72148

== ENCOUNTER 2019-06-05 20:54 | Observation (INO) ==
--- NOTE | 2019-06-05 21:31 | DR.AMS ---
HPI Time Seen Time Seen by Provider: 06/05/19 21:31 PCP Primary Care Physician: FRITZ HPI Comment HPI Comment: 68 yo CF w/ pmh of cad, recurrent uti presents w/ 24 hr hx of mild confusion along w/ ambulatory dysfunction. Per family she has been having generalized weakness as well as difficulty ambulating secondary to this generalized weakness since awaking this morning at 7-8 am. Intermittent confusion and asking repetitive questions. No head trauma. No focal numbness/ weakness, dysarthria or aphasia. No visual sx's or LUTZ. No CP, sob, diaphoresis, n/v, syncope, or urinary irrtiative sx's. Last completed po abx for uti 2-3 weeks ago per family. No hx of stroke in the past. Takes daily asa 81 mg. Complaint Chief Complaint:: PT IN ED VIA WHEELCHAIR WITH C/O NOT FEELING GOOD. FAMILY STATES PT HAD BEEN NOT ACTING RIGHT, HAVING DIZZINESS, UNABLE TO AMBULATE NORMAL. APPETITE POOR. NOT EATING TODAY. PT ALSO C/O BURNING ON URINATION. HAS BEEN HAVING FREQUENT UTI'S. Self Treatment fo Chief Complaint: PT GIVEN HYDROCODONE 7.5MG AT AROUND 5PM Source History Provided: Patient and Family Member Mode of Arrival Mode of Arrival: Ambulatory Timing Onset of Chief Complaint: 06/05/19 Came On: Gradually Quality Quality: Not Eating Severity Severity: Mild Context Recent: denies Fever, Cough, Urinary Symptoms, Nausea, Vomiting, Trauma, Medication Change and Drug Use History Of: denies CVA, Dementia, Seizure and Diabetes Associated Signs and Symptoms Associated Signs and Symptoms: Generalized Weakness and Decreased Oral Intake; denies Right Sided Weakness, Left Sided Weakness, Chest Pain, Headache, Slurred Speech, Decreased LOC, Unresponsiveness and Seizure PMH PMH Past Medical History: Yes Past Medical History: Anemia, Anxiety, Arthritis, Coronary Artery Disease, Depression, Dyslipidemia, GERD and Hypertension Past Medical History Comment: UTI Past Surgical History: Yes Surgical History: Angioplasty/Stents, Cholecystectomy, TAFFY PULLER Surgery, Hysterectomy and Ortho Surgery Past Surgical History Comment: EYE Family History History of Family Medical Conditions: Yes Family Medical History: Diabetes Mellitus, Cancer, [place], Coronary Artery Disease and Hypertension Social History Does patient currently use any type of tobacco product: No Have you used tobacco products in the last 12 months: No Type of Tobacco Use: None Does any household member use tobacco: No Alcohol Use: None Do you use any recreational Drugs:: No Lives With: Alone Lives Where: Home infectious screening In the last 2 months have you had wt loss of >10#?: NO Have you had fever, night sweats or hemotysis?: No Have you traveled outside the country in the last 6 months?: No Isolation: Standard ROS Review of Systems Constitutional: No Symptoms Reported Eyes: No Symptoms Reported ENTM: No Symptoms Reported Respiratoy: No Symptoms Reported Cardiovascular: No Symptoms Reported Gastrointestinal/Abdominal: No Symptoms Reported Genitourinary: No Symptoms Reported Neurological: Tremors, Weakness and Problems Walking; negative Depressed, Headache, Numbness, Paresthesia, Seizure, Tingling, Dizziness and Speech Problem Musculoskeletal: No Symptoms Reported Integumentary: No Symptoms Reported Hematologic/Lymphatic: No Symptoms Reported Endocrine: No Symptoms Reported Psychiatric: No Symptoms Reported; negative Depression and Hallucinations All Other Systems: Reviewed and Negative PE Vitals Vital Signs: Temp Pulse Resp BP BP Pulse Ox 06/05/19 21:54 103 H 20 187/81 94 L 06/05/19 20:54 97.5 F L 101 H 22 176/76 93 L 04/02/19 11:44 131/73 General Limitations: Language Barrier General Appearance: Alert Head Head Exam: Normal Inspection Eyes Eye exam: Normal Appearance ENT ENT Exam: Normal Exam External Ear Exam: Normal External Inspection Nose Exam: Normal Nose Exam Mouth Exam: Normal Inspection Throat Exam: Normal Inspection Neck Neck Exam: Normal Inspection Chest Chest Inspection: Normal Inspection Respiratory Respiratory Exam: Normal Lung Sounds Bilat Cardiovascular Cardiovascular Exam: Regular Rate and Normal Rhythm Abdominal Exam Abdominal Exam: Normal Inspection, Normal Bowel Sounds and Soft Extremities Extremities Exam: Normal Inspection Back Back Exam: Normal Inspection Neurological Neurological Exam: Alert and Oriented X3 Patient Oriented To: Person, Place and Time Speech: Fluid Speech and Other (+ ataxia bilateral upper extremities, no pronator drift. CN 2-12 otherwise grossly intact. No aphasia. ) Motor Strength - LUE: 5/5 Motor Strength - RUE: 5/5 Motor Strength - LLE: 5/5 Motor Strength - RLE: 5/5 Upper Motor Neuron Exam: Oscar Neglect: Normal and Pronator Drift: Normal Psychological Psychiatric Exam: Normal Affect and Normal Mood Skin Skin Exam: Warm, Dry, Intact and Normal Color MDM Additional Information Obtained Additional Information Obtained From: Old Records and Family Differential Diagnosis Metabolic: Dehydration, Hypercalcemia, Hypernatremia, Hypoglycemia, Hyponatremia and Hypoxemia Structural: Closed Head Injury, CVA and SAH Infectious: Meningitis COURSE Treatment Treatment: 68 yo f presents w/ decreased po intake, ambulatory dysfunction and intermittent confusion x greater than 12 hrs. Moderatly htn on arrival to ED w/ SBP in 180's. a/o x 3. Some ataxia present in bilateral upper extremities which has been present for several months per daughter. NIH SS 2. Not a TPA candidate due to being out of window. Patient other than her ataxia is neurologically intact. CTH obtained which demonstrated questionable early hypoattenuation in the asuncion, no evidence of ICH. ASA/ Plavix loaded. Will allow permissive htn. BMP w/ evidence of diego, likely dehydration secondary to decreased po intake. EKG w/ complete RBBB when compared to prev ekg, otherwise no acute changes. Will admit to field operations supervisor hospitalist for further stroke w/u. Education/Counseling Education/Counseling: Patient and Family Educated On: Treatment, Diagnosis, Prognosis and Needs for Follow Up ROR Labs Reviewed Laboratory Results Reviewed?: Yes Result Diagrams: 06/05/19 22:13 Laboratory: Sodium 131 mmol/L (136-145) L 06/05/19 22:13 Corrected Sodium TNP 06/05/19 22:13 Potassium 3.3 mmol/L (3.5-5.1) L 06/05/19 22:13 Chloride 95 mmol/L (98-107) L 06/05/19 22:13 Carbon Dioxide 27.3 mmol/L (21-32) 06/05/19 22:13 BUN 12 mg/dL (7-18) 06/05/19 22:13 Creatinine 1.37 mg/dL (0.55-1.02) H 06/05/19 22:13 Est GFR (MDRD) Af Amer 49 (>60) L 06/05/19 22:13 Est GFR (MDRD) Non-Af 41 (>60) L 06/05/19 22:13 Glucose 108 mg/dL (65-99) H 06/05/19 22:13 Calcium 9.7 mg/dL (8.5-10.1) 06/05/19 22:13 Troponin I < 0.02 ng/mL (0-1.5) 06/05/19 22:13 Specimen Type Random urine 06/05/19 22:27 Urine Color Yellow (YELLOW) 06/05/19 Urine Appearance Cloudy (CLEAR) 06/05/19 Urine pH 5.0 (5.0 - 8.0) 06/05/19 Ur Specific [place] 1.015 (1.000-1.030) 06/05/19 Urine Protein 3+ (NEGATIVE) 06/05/19 Urine Glucose (UA) Negative (NEGATIVE) 06/05/19 Urine Ketones Negative (NEGATIVE) 06/05/19 Urine Occult Blood 4+ (NEGATIVE) 06/05/19 Urine Nitrite Negative (NEGATIVE) 06/05/19 Urine Bilirubin Negative (NEGATIVE) 06/05/19 Urine Urobilinogen Normal (NORMAL) 06/05/19 Ur Leukocyte Esterase 3+ (NEGATIVE) 06/05/19 Urine RBC 3-5 /HPF (0-3) A 06/05/19 Urine WBC 20-30 /HPF (0-5) A 06/05/19 Ur Squamous Epith Cells Few /HPF (NEGATIVE) 06/05/19 Urine Bacteria Negative /HPF (NEGATIVE) 06/05/19 Urine Mucus Moderate /HPF (NEGATIVE) 06/05/19 Ur Culture Indicated? No/not indicated 06/05/19 XRAY XRAY Interpreted by: Radiologist X-ray Results: small area of hypoattenuation in asuncion, no ich, otherwise neagativ e EKG Compared to prior EKG Dated: 09/22/16 Rate: 103 Rhythm: NSR Block: None and RBBB Hypertrophy: None ST: Nonsp Opioid Opioid Risk Tool Age (Jose box if 16-45): No History of Preadolescent Sexual Abuse: No Total: 0 Total Score Risk Category: Low Risk Copyright: Abdirizak HENAO predicting aberrant behaviors Diagnosis Discharge Problem: Acute CVA (cerebrovascular accident), Hypertension
--- NOTE | 2019-06-05 22:17 | CT ---
STUDY: CT HEAD WITHOUT IV CONTRASTCOMPARISON: NoneTECHNIQUE: axial images were acquired of the head without IV contrast. Coronal and sagittal images were provided. All images were reviewed in a variety of windows and levels.RADIATION REDUCTION TECHNIQUE: Automated exposure control, Adjustment of the mA and/or kV according to patient size, or iterative reconstruction techniques were used.HISTORY: AMS with confusedFINDINGS:There is no evidence of an acute intracranial bleed.There is no evidence of a mass or midline shift.There is no evidence of an extra-axial fluid collection.The chance-white matter differentiation is within normal limits.The visualized bones are unremarkable.The visualized sinuses are clear.The mastoid air cells are well-aerated.IMPRESSION:THERE IS NO EVIDENCE OF AN ACUTE INTRACRANIAL BLEEDElectronically signed by: Zack Gutiérrez (Jun 05, 2019 22:15:45)
--- NOTE | 2019-06-05 22:21 | RAD ---
STUDY: FRONTAL VIEW CHESTCOMPARISON: 02/04/2017HISTORY: CHEST PAINFINDINGS:Again noted are postoperative changes from a right shoulder arthroplastyNo focal consolidation is seen.The heart size is magnified on this portable technique and without radiographic evidence of pulmonary edema.The mediastinum is unremarkable.There is no evidence of pleural effusion or gross pneumothorax.Trachea is midline.IMPRESSION:1. NO FOCAL CONSOLIDATION SEEN.Electronically signed by: Zack Gutiérrez (Jun 05, 2019 22:20:01)
[2019-06-05 22:35] LABS: APPEARANCE,URINE CLOUDY (CLEAR); BILIRUBIN,URINE NEGATIVE (NEGATIVE); BLOOD/HEMOGLOBIN,URINE 4+ (NEGATIVE); COLOR,URINE YELLOW (YELLOW); GLUCOSE, URINE NEGATIVE (NEGATIVE); KETONES,URINE NEGATIVE (NEGATIVE); LEUKOCYTE ESTERASE ,URINE 3+ (NEGATIVE); NITRITES,URINE NEGATIVE (NEGATIVE); PROTEIN,URINE 3+ (NEGATIVE); UROBILINOGEN,URINE NORMAL (NORMAL)
[2019-06-05 22:46] LABS: BLOOD UREA NITROGEN 12 mg/dL (7-18); CALCIUM 9.7 mg/dL (8.5-10.1); CARBON DIOXIDE 27.3 mmol/L (21-32); CHLORIDE 95 mmol/L (98-107); CREATININE 1.37 mg/dL (0.55-1.02); SODIUM 131 mmol/L (136-145); TROPONIN I < 0.02 ng/mL (0-1.5); eGFR NON BLACK RACES 41 (>60)
[2019-06-05 22:48] LABS: BACTERIA,URINE NEGATIVE /HPF (NEGATIVE); MUCUS,URINE MODERATE /HPF (NEGATIVE); SQUAMOUS EPITHELIAL CELL,UR FEW /HPF (NEGATIVE)
[2019-06-05] MEDS ORDERED: NS 1000 ML 1,000 ML IV ONE (22:50)
[2019-06-05] MEDS ORDERED: NS 1000 ML 1,000 ML ONE (22:58)
[2019-06-05] MEDS ORDERED: ASPIRIN PO ONE (23:41)
[2019-06-06] MEDS ORDERED: ASPIRIN ONE (00:26)
[2019-06-06] MEDS ORDERED: PLAVIX ONE (00:27)
[2019-06-06] MEDS: PLAVIX PO SCH ×2 (00:30→08:36)
[2019-06-06] MEDS: NS 1000 ML 1,000 ML IV SCH ×3 (00:47→17:36)
[2019-06-06] MEDS ORDERED: NORCO 5/325 MG TAB PO ONE (00:49)
[2019-06-06 01:11] LABS: BASOPHILS # (AUTO) 0.1 X10^3/uL (0.0-0.1); BASOPHILS % (AUTO) 0.5 % (0.2-1.0); HEMATOCRIT 35.4 % (36.0-47.0); HEMOGLOBIN 11.6 g/dL (12.0-16.0); LYMPHOCYTES # (AUTO) 2.3 X10^3/uL (1.3-2.9); MEAN CORPUSCULAR HGB CONC 32.7 g/dL (33.0-35.0); MEAN CORPUSCULAR VOLUME 79.5 fL (80.0-100.0); MEAN PLATELET VOLUME 8.7 fL (7.4-11.0); MONOCYTES # (AUTO) 1.2 x10^3/uL (0.3-0.8); MONOCYTES % (AUTO) 7.3 % (0.0-13.0); NEUTROPHILS # (AUTO) 12.6 x10^3/uL (2.2-4.8); NEUTROPHILS % (AUTO) 78.2 % (42.0-75.0); PLATELET COUNT 261 X10^3/uL (150.0-450.0); RED BLOOD COUNT 4.45 X10^6/uL (3.5-5.4); RED CELL DISTRIBUTION WIDTH 14.6 % (11.6-16.5); WHITE BLOOD COUNT 16.1 X10^3/uL (3.6-10.0)
[2019-06-06] MEDS ORDERED: NORCO 5/325 MG TAB ONE (01:15)
[2019-06-06 04:14] VITALS: BMI 43.3
[2019-06-06 06:22] LABS: BASOPHILS # (AUTO) 0.1 X10^3/uL (0.0-0.1); BASOPHILS % (AUTO) 0.4 % (0.2-1.0); HEMATOCRIT 31.1 % (36.0-47.0); HEMOGLOBIN 10.2 g/dL (12.0-16.0); LYMPHOCYTES # (AUTO) 2.1 X10^3/uL (1.3-2.9); LYMPHOCYTES % (AUTO) 13.6 % (21.0-51.0); MEAN CORPUSCULAR HGB CONC 32.8 g/dL (33.0-35.0); MEAN CORPUSCULAR VOLUME 79.3 fL (80.0-100.0); MEAN PLATELET VOLUME 8.7 fL (7.4-11.0); MONOCYTES # (AUTO) 1.2 x10^3/uL (0.3-0.8); MONOCYTES % (AUTO) 7.8 % (0.0-13.0); NEUTROPHILS % (AUTO) 78.2 % (42.0-75.0); PLATELET COUNT 225 X10^3/uL (150.0-450.0); RED BLOOD COUNT 3.93 X10^6/uL (3.5-5.4); RED CELL DISTRIBUTION WIDTH 14.5 % (11.6-16.5); WHITE BLOOD COUNT 15.3 X10^3/uL (3.6-10.0)
[2019-06-06 06:23] LABS: ALANINE AMINOTRANSFERASE 18 Units/L (12-78); ALBUMIN 2.8 g/dL (3.4-5.0); ALKALINE PHOSPHATASE 134 Units/L (46-116); ASPARTATE AMINO TRANSFERASE 22 Units/L (15-37); BLOOD UREA NITROGEN 13 mg/dL (7-18); CALCIUM 8.9 mg/dL (8.5-10.1); CARBON DIOXIDE 24.9 mmol/L (21-32); CHLORIDE 97 mmol/L (98-107); COR CA(FOR HYPOALB) 9.9 mg/dL (8.5-10.1); SODIUM 134 mmol/L (136-145); TOTAL PROTEIN 7.7 g/dL (6.4-8.2); eGFR NON BLACK RACES 43 (>60)
[2019-06-06] MEDS ORDERED: POTASSIUM CHLORIDE LIQ 20 MEQ UDC PO PRN (06:32)
[2019-06-06] MEDS ORDERED: MICRO K EXTEN CAP 10 MEQ PO PRN (06:32)
[2019-06-06] MEDS ORDERED: K-DUR TAB 20 MEQ PO PRN (06:32)
[2019-06-06] MEDS ORDERED: K-RIDER 10 MEQ/NS 100 ML 10 MEQ/100 ML BAG IV PRN (06:32)
[2019-06-06] MEDS ORDERED: POTASSIUM CHL 40 MEQ/NS 0.45% 500 ML IV PRN (06:32)
[2019-06-06] MEDS ORDERED: KLOR-CON PO PRN (06:32)
[2019-06-06] MEDS ORDERED: POTASSIUM CHL 60 MEQ/NS 0.45% 500 ML IV PRN (06:32)
[2019-06-06] MEDS: SYNTHROID 25 mcg TAB PO SCH (08:36)
[2019-06-06] MEDS: CELEXA PO SCH (08:36)
[2019-06-06] MEDS: COREG TAB 12.5 MG PO SCH ×2 (08:38→20:49)
[2019-06-06] MEDS ORDERED: LIPITOR TAB 40 MG PO SCH (09:00)
[2019-06-06] MEDS: MAGNESIUM SULFATE 1 GRAM/100 mL PREMIX 1 GM/100 ML BAG IV PRN ×2 (10:11→13:49)
[2019-06-06] MEDS ORDERED: BENTYL CAP 10 MG PO PRN (12:53)
[2019-06-06] MEDS ORDERED: XANAX PO PRN (13:00)
[2019-06-06] MEDS ORDERED: PHENERGAN TAB 25 MG PO PRN (13:18)
[2019-06-06] MEDS ORDERED: NORCO 7.5/325 MG TAB ONE (13:37)
[2019-06-06] MEDS ORDERED: XANAX ONE (13:41)
[2019-06-06] MEDS: NORCO 7.5/325 MG TAB PO PRN ×2 (13:43→20:49)
[2019-06-06] MEDS: XANAX PO PRN ×2 (13:47→20:48)
[2019-06-06] MEDS ORDERED: SYNTHROID 25 mcg TAB PO SCH (16:30)
[2019-06-06] MEDS: LIBRAX PO SCH ×2 (16:42→22:09)
[2019-06-06] MEDS: CARDIZEM TAB 30 MG PLAIN PO SCH (20:43)
[2019-06-06] MEDS: COLACE CAP 100 MG PO SCH ×2 (20:48→22:09)
[2019-06-06] MEDS: LIPITOR TAB 40 MG PO SCH (20:48)
[2019-06-06] MEDS: ZANAFLEX PO SCH (20:53)
[2019-06-06] MEDS ORDERED: COREG TAB 12.5 MG PO SCH (21:00)
[2019-06-07] MEDS: NS 1000 ML 1,000 ML IV SCH ×3 (00:06→17:05)
[2019-06-07] MEDS: LIBRAX PO SCH ×4 (06:11→21:24)
[2019-06-07 06:34] LABS: BASOPHILS % (AUTO) 0.4 % (0.2-1.0); EOSINOPHILS # (AUTO) 0.1 x10^3/uL (0.0-0.2); EOSINOPHILS % (AUTO) 0.8 % (0.9-2.9); HEMATOCRIT 29.4 % (36.0-47.0); HEMOGLOBIN 9.7 g/dL (12.0-16.0); LYMPHOCYTES # (AUTO) 1.1 X10^3/uL (1.3-2.9); LYMPHOCYTES % (AUTO) 13.7 % (21.0-51.0); MEAN CORPUSCULAR HEMOGLOBIN 26.1 pg (27.0-34.0); MEAN CORPUSCULAR HGB CONC 32.8 g/dL (33.0-35.0); MEAN CORPUSCULAR VOLUME 79.4 fL (80.0-100.0); MEAN PLATELET VOLUME 8.1 fL (7.4-11.0); MONOCYTES # (AUTO) 0.8 x10^3/uL (0.3-0.8); MONOCYTES % (AUTO) 9.2 % (0.0-13.0); NEUTROPHILS # (AUTO) 6.3 x10^3/uL (2.2-4.8); NEUTROPHILS % (AUTO) 75.9 % (42.0-75.0); PLATELET COUNT 192 X10^3/uL (150.0-450.0); RED BLOOD COUNT 3.71 X10^6/uL (3.5-5.4); RED CELL DISTRIBUTION WIDTH 14.9 % (11.6-16.5); WHITE BLOOD COUNT 8.3 X10^3/uL (3.6-10.0)
[2019-06-07 06:42] LABS: ALANINE AMINOTRANSFERASE 24 Units/L (12-78); ALBUMIN 2.6 g/dL (3.4-5.0); ALKALINE PHOSPHATASE 125 Units/L (46-116); ASPARTATE AMINO TRANSFERASE 67 Units/L (15-37); BLOOD UREA NITROGEN 15 mg/dL (7-18); CALCIUM 8.6 mg/dL (8.5-10.1); CHLORIDE 99 mmol/L (98-107); COR CA(FOR HYPOALB) 9.7 mg/dL (8.5-10.1); CREATININE 1.58 mg/dL (0.55-1.02); MAGNESIUM 2.3 mg/dL (1.7-2.9); SODIUM 133 mmol/L (136-145); TOTAL PROTEIN 7.3 g/dL (6.4-8.2); eGFR NON BLACK RACES 35 (>60)
[2019-06-07] MEDS: SYNTHROID 25 mcg TAB PO SCH (08:22)
[2019-06-07] MEDS: CELEXA PO SCH (08:25)
[2019-06-07] MEDS: NORCO 7.5/325 MG TAB PO PRN ×2 (08:25→14:39)
[2019-06-07] MEDS: ASPIRIN 81 MG CHEWTAB PO SCH (08:25)
[2019-06-07] MEDS: COREG TAB 12.5 MG PO SCH (08:27)
[2019-06-07] MEDS: PLAVIX PO SCH (08:27)
[2019-06-07] MEDS: CARDIZEM TAB 30 MG PLAIN PO SCH (08:27)
[2019-06-07] MEDS ORDERED: COZAAR PO SCH (09:00)
[2019-06-07] MEDS ORDERED: NS 1000 ML 1,000 ML IV ONE (09:25)
[2019-06-07] MEDS: LOVENOX INJ 30 MG SYR SC SCH (10:31)
[2019-06-07] MEDS: MAGIC MOUTHWASH MT SCH ×4 (10:31→21:25)
--- NOTE | 2019-06-07 12:15 | DR.H&P ---
H&P - History & Physical for Day of: H&P Date: 06/06/19 - Chief Complaint Chief Complaint: WEAKNESS, DIZZINESS, POOR APPETITE, DECLINE IN GAIT, BURNING ON URINATION - History of Present Illness History of Present Illness: IS A 68 YEAR OLD PATIENT OF OURS WHO PRESENTED TO THE ER WITH COMPLAINTS OF WEAKNESS, DIZZINESS, POOR APPETITE, DECLINE IN GAIT, AND BURNING ON URINATION. PATIENTS DAUGHTER ALSO REPORTS THAT SHE HAS HAD INTERMITTENT CONFUSION. SHE WAS RECENTLY TREATED FOR A URINARY TRACT INFECTION. ON ARRIVAL TO THE ER, VITALS WERE 97.5-101-22-93%-176/76. LABS WERE OBTAINED. ABNORMAL LAB VALUES INCLUDE THE FOLLOWING: WBC 16.1, HGB 11.6, HCT 35.4, SODIUM 131, POTASSIUM 3.3, CHLORIDE 95, CREATININE 1.37, GLUCOSE 108. A URINALYSIS WAS OBTAINED AND REVEALED: WBC 20-30, RBC 3-5, LEUKOCYTES 3+, BACTERIA NEGATIVE, OCCULT BLOOD 4+, MUCUS MODERATE. A BRAIN CT WAS OBTAINED AND REVEALED: THERE IS NO EVIDENCE OF AN ACUTE INTRACRANIAL BLEED. A CHEST XRAY WAS OBTAINED AND REVEALED: NO FOCAL CONSOLIDATION SEEN. AN EKG WAS OBTAINED AND REVEALED: SINUS TACHYCARDIA WITH HR 103. SHE WAS GIVEN ASA 325MG PO X 1 AND NORCO 5/325MG PO X 1 DOSE. SHE WAS ADMITTED FOR FURTHER EVALUATION AND TREATMENT OF HTN URGENCY AND R/O CVA. WE WILL RESUME HER HOME MEDICATIONS WHICH INCLUDE COREG, LOSARTAN, AND CARDIZEM. WE WILL ALSO START NORMAL SALINE AT 125ML/HR AND THE POTASSIUM AND MAGNESIUM PROTOCOLS. WE WILL OBTAIN A BRAIN MRI WITHOUT CONT RAST. OTHERWISE, WE WILL FOLLOW UP WITH AM LABS AND CONTINUE TO MONITOR. - Past Medical History Past Medical History: Coronary Artery Disease, Hypertension, Dyslipidemia, Depression, Anxiety, Anemia, GERD, Arthritis - Past Surgical History Surgical History: Abdominal Surgery, Angioplasty/Stents, Appendectomy, Bowel Resection, Hysterectomy, Weight Loss Surgery - Family History Family Medical History: Diabetes Mellitus, Cancer, [place], Hypertension - Social History Does patient currently use any type of tobacco product: No Have you used tobacco products in the last 12 months: No Type of Tobacco Use: None Does any household member use tobacco: No Alcohol Use: None Drug Use: None Prescription drug monitoring program results: PDMP reviewed and no concerns identified - Medications Home Medications: codeine Allergy (Verified 04/02/19 10:36) levofloxacin [From Levaquin] Allergy (Verified 04/02/19 10:36) nalbuphine [From Nubain] Allergy (Verified 04/02/19 10:36) penicillin G Allergy (Verified 04/02/19 10:36) rifampin Allergy (Verified 04/02/19 10:36) Sulfa (Sulfonamide Antibiotics) [SULFA] Allergy (Verified 04/02/19 10:36) CONTINUE taking the following medications carboxymethylcellulose sodium [Refresh Tears] 1 drp OPHTHALMIC (EYE) 4-6XD PRN 06/05/19 [History] chlordiazepoxide-clidinium [Librax (with clidinium)] 1 cap PO QACHS 06/05/19 [History] citalopram 40 mg PO DAILY 06/05/19 [History] cyclobenzaprine 10 mg PO TID PRN 06/05/19 [History] hydrocodone-acetaminophen 1 tab PO TID PRN 06/05/19 [History] levothyroxine 25 mcg PO DAILY 06/05/19 [History] promethazine 25 mg PO Q6HR PRN 06/05/19 [History] - Review of Systems Constitutional: See HPI, Weakness, Malaise, Other (POOR APPETITE ) Eyes: No Symptoms Reported ENT: No Symptoms Reported Respiratory: No Symptoms Reported Cardiovascular: Light Headedness Gastrointestinal: No Symptoms Reported Genitourinary: See HPI, Dysuria Musculoskeletal: Other (DECLINE IN GAIT ) Skin: No Symptoms Reported Neurological: Weakness - Physical Exam Vital Signs: Temperature 98.6 F Pulse Rate [Left Brachial] 80 Pulse Rate 93 Respiratory Rate 18 Blood Pressure [Left Arm] 107/56 Blood Pressure 120/57 O2 Sat by Pulse Oximetry 94 Oriented: Normal Eyes: Normal Ear: Normal Nose: Normal Throat: Normal Respiratory: Diminished Throughout Cardiovascular: Tachycardia. negative: S3, S4, Murmur : Normal Auscultation: Bowel Sounds: Normal Palpation: Normal Tenderness: Normal Skin: Normal Musculoskeletal: Normal Psychiatric: Normal Mood Description: Calm Affect: Normal Speech Pattern: Clear - Assessment/Plan (1) Acute CVA (cerebrovascular accident) Status: Suspected Plan: ADMIT, RESUME HER HOME MEDICATIONS WHICH INCLUDE ASA, PLAVIX, COREG, LOSARTAN, AND CARDIZEM. WE WILL ALSO START NORMAL SALINE AT 125ML/HR AND THE POTASSIUM AND MAGNESIUM PROTOCOLS, OBTAIN BRAIN MRI (2) Generalized weakness Status: Acute (3) Hypertensive urgency Status: Acute - Allergies Allergies/Adverse Reactions: Allergies Allergy/AdvReac Type Severity Reaction Status Date / Time codeine Allergy Verified 04/02/19 10:36 levofloxacin [From Levaquin] Allergy Verified 04/02/19 10:36 nalbuphine [From Nubain] Allergy Verified 04/02/19 10:36 penicillin G Allergy Verified 04/02/19 10:36 rifampin Allergy Verified 04/02/19 10:36 Sulfa (Sulfonamide Allergy Verified 04/02/19 10:36 Antibiotics) [SULFA]
--- NOTE | 2019-06-07 14:08 | MRI ---
HISTORY: CVA, hypertensive urgencyStudy: MRI Brain without contrastComparison: Head CT 06/05/2019Technique: Multiplanar multi-sequence MRI of the brain was performed with standard departmental protocolFindings:There is mild age related cerebral volume loss and nonspecific periventricular white matter hyperintense signal on T2 and FLAIR that may reflect microvascular ischemic changes. No evidence of mass or intracranial hemorrhage . No restricted diffusion to suggest recent infarction . No extra-axial fluid collections are observed . The ventricular system appears symmetric and nondilated . No cerebellopontine angle mass identified.Please note evaluation is limited without IV contrast.The T2 flow voids appear normal . The midline structures appear unremarkable . The soft tissues are intact . The visualized paranasal sinuses and mastoid air cells are clear. Orbits and globes are unremarkable.IMPRESSION:1. No acute intracranial abnormality identified.Electronically signed by: BART ELAM (Jun 07, 2019 14:07:06)
--- NOTE | 2019-06-07 19:05 | PCM.PROG ---
Progress Note - Progress Note for Day of Date of Exam: 06/07/19 - Subjective Subjective: WAS ADMITTED FOR HYPERTENSIVE URGENCY AND TO RULE OUT CVA. TODAY, SHE IS ALERT AND ORIENTED, LYING IN BED ON MORNING ROUNDS. SHE CONTINUES WITH WEAKNESS AND ALSO REPORTS A SORE THROAT. STAFF REPORTS THAT SHE HAS BEEN HYPOTENSIVE THIS MORNING. ON EXAMINATION, HEART IS REGULAR IN RATE AND RHYTHM. BILATERAL LUNGS ARE NOTED WITH DIMINISHED LUNG SOUNDS THROUGHOUT. ABDOMEN IS ROUND, SOFT, AND NON-TENDER. NORMAL BOWEL SOUNDS ARE NOTED IN ALL QUADRANTS. HER VITALS THIS MORNING ARE: 98.6-80-22-94%-107/56. LABS WERE OBTAINED. ABNORMAL LAB VALUES INCLUDE THE FOLLOWING: HGB 9.7, HCT 29.4, SODIUM 133, CREATININE 1.58, GLUCOSE 109, AST 67, ALK PHOS 125, ALBUMIN 2.6. SHE IS CURRENTLY RECEIVING NS AT 125ML/HR, THE POTASSIUM AND MAGNESIUM PROTOCOLS, AND HOME MEDICATIONS WERE RESUMED WHICH INCLUDE PLAVIX, COREG, LOSARTAN, AND CARDIZEM. TODAY, WE WILL HOLD HER CARDIZEM AND LOSARTAN. WE WILL DECREASE COREG TO 6.25MG PO BID, START MAGIC MOUTHWASH QID, AND ADMINISTER A ONE LITER BOLUS. SHE IS SCHEDULE FOR A BRAIN MRI THIS MORNING. OTHERWISE, WE WILL FOLLOW UP WITH AM LABS AND CONTINUE TO MONITOR. - Past Medical Family Social History Past Med/Fam/Surg Hx: No changes since H&P Allergies: Allergies codeine Allergy (Verified 04/02/19 10:36) levofloxacin [From Levaquin] Allergy (Verified 04/02/19 10:36) nalbuphine [From Nubain] Allergy (Verified 04/02/19 10:36) penicillin G Allergy (Verified 04/02/19 10:36) rifampin Allergy (Verified 04/02/19 10:36) Sulfa (Sulfonamide Antibiotics) [SULFA] Allergy (Verified 04/02/19 10:36) - Review of Systems ROS: No change since H&P - Vital Signs and I&O's Vital Signs: Temperature 98.4 F Pulse Rate [Left Brachial] 73 Pulse Rate 93 Respiratory Rate 22 Blood Pressure [Left Arm] 149/64 Blood Pressure 120/57 O2 Sat by Pulse Oximetry 94 Intake and Output: Intake & Output 06/05/19 06/06/19 06/07/19 06/08/19 11:59 11:59 11:59 11:59 Intake Total 139 / 139 3913 / 3913 2239 / 2239 Output Total 75 / 75 50 / 50 Balance 64 / 64 3863 / 3863 2239 - Physical Exam Oriented: Normal Eyes: Normal Ear: Normal Nose: Normal Throat: Normal Respiratory: Generalized, Diminished Cardiovascular: Normal. negative: S3, S4, Murmur : Normal Auscultation: Bowel Sounds: Normal Palpation: Normal Tenderness: Normal Skin: Normal Musculoskeletal: Normal Psychiatric: Normal Mood Description: Calm Affect: Normal Speech Pattern: Clear - Laboratory and Diagnostics Result Diagrams: 06/07/19 06:08 06/07/19 06:08 Labs: Laboratory WBC 8.3 X10^3/uL (3.6-10.0) 06/07/19 06:08 RBC 3.71 X10^6/uL (3.5-5.4) 06/07/19 06:08 Hgb 9.7 g/dL (12.0-16.0) L 06/07/19 06:08 Hct 29.4 % (36.0-47.0) L 06/07/19 06:08 MCV 79.4 fL (80.0-100.0) L 06/07/19 06:08 MCH 26.1 pg (27.0-34.0) L 06/07/19 06:08 MCHC 32.8 g/dL (33.0-35.0) L 06/07/19 06:08 RDW 14.9 % (11.6-16.5) 06/07/19 06:08 Plt Count 192 X10^3/uL (150.0-450.0) 06/07/19 06:08 MPV 8.1 fL (7.4-11.0) 06/07/19 06:08 Neut % (Auto) 75.9 % (42.0-75.0) H 06/07/19 06:08 Lymph % (Auto) 13.7 % (21.0-51.0) L 06/07/19 06:08 Bryan % (Auto) 9.2 % (0.0-13.0) 06/07/19 06:08 Eos % (Auto) 0.8 % (0.9-2.9) L 06/07/19 06:08 Baso % (Auto) 0.4 % (0.2-1.0) 06/07/19 06:08 Neut # (Auto) 6.3 x10^3/uL (2.2-4.8) H 06/07/19 06:08 Lymph # (Auto) 1.1 X10^3/uL (1.3-2.9) L 06/07/19 06:08 Bryan # (Auto) 0.8 x10^3/uL (0.3-0.8) 06/07/19 06:08 Eos # (Auto) 0.1 x10^3/uL (0.0-0.2) 06/07/19 06:08 Baso # (Auto) 0.0 X10^3/uL (0.0-0.1) 06/07/19 06:08 Absolute Nucleated RBC 0.0 /100WBC 06/07/19 06:08 Sodium 133 mmol/L (136-145) L 06/07/19 06:08 Corrected Sodium TNP 06/07/19 06:08 Potassium 3.8 mmol/L (3.5-5.1) 06/07/19 06:08 Chloride 99 mmol/L (98-107) 06/07/19 06:08 Carbon Dioxide 25.0 mmol/L (21-32) 06/07/19 06:08 BUN 15 mg/dL (7-18) 06/07/19 06:08 Creatinine 1.58 mg/dL (0.55-1.02) H 06/07/19 06:08 Est GFR (MDRD) Af Amer 42 (>60) L 06/07/19 06:08 Est GFR (MDRD) Non-Af 35 (>60) L 06/07/19 06:08 Glucose 109 mg/dL (65-99) H 06/07/19 06:08 POC Glucose (mg/dL) 92 mg/dL (65-99) 06/06/19 05:07 Lactic Acid 0.7 mmol/L (0.4-2.0) 06/07/19 01:37 Calcium 8.6 mg/dL (8.5-10.1) 06/07/19 06:08 Corrected Calcium 9.7 mg/dL (8.5-10.1) 06/07/19 06:08 Magnesium 2.3 mg/dL (1.7-2.9) 06/07/19 06:08 Total Bilirubin 0.80 mg/dL (0.2-1.0) 06/07/19 06:08 AST 67 Units/L (15-37) H 06/07/19 06:08 ALT 24 Units/L (12-78) 06/07/19 06:08 Alkaline Phosphatase 125 Units/L (46-116) H 06/07/19 06:08 Troponin I < 0.02 ng/mL (0-1.5) 06/05/19 22:13 Total Protein 7.3 g/dL (6.4-8.2) 06/07/19 06:08 Albumin 2.6 g/dL (3.4-5.0) L 06/07/19 06:08 Globulin 4.7 g/dL (2.5-4.5) H 06/07/19 06:08 Albumin/Globulin Ratio 0.6 Ratio (1.1-2.1) L 06/07/19 06:08 Specimen Type Random urine 06/05/19: Urine Color Yellow (YELLOW) 06/05/19: Urine Appearance Cloudy (CLEAR) 06/05/19: Urine pH 5.0 (5.0 - 8.0) 06/05/19: Ur Specific Ewing 1.015 (1.000-1.030) 06/05/19 22: Urine Protein 3+ (NEGATIVE) 06/05/19 Urine Glucose (UA) Negative (NEGATIVE) 06/05/19 Urine Ketones Negative (NEGATIVE) 06/05/19: Urine Occult Blood 4+ (NEGATIVE) 06/05/19 Urine Nitrite Negative (NEGATIVE) 06/05/19: Urine Bilirubin Negative (NEGATIVE) 06/05/19: Urine Urobilinogen Normal (NORMAL) 06/05/19 Ur Leukocyte Esterase 3+ (NEGATIVE) 06/05/19 Urine RBC 3-5 /HPF (0-3) A 06/05/19: Urine WBC 20-30 /HPF (0-5) A 06/05/19: Ur Squamous Epith Cells Few /HPF (NEGATIVE) 02/22/20 22:27 Urine Bacteria Negative /HPF (NEGATIVE) 06/05/19 22:27 Urine Mucus Moderate /HPF (NEGATIVE) 06/05/19 22:27 Ur Culture Indicated? No/not indicated 06/05/19 22:27 - Plan (1) Acute CVA (cerebrovascular accident) Status: Suspected Plan: ADMIT, RESUME HER HOME MEDICATIONS WHICH INCLUDE ASA, PLAVIX, COREG, LOSARTAN, AND CARDIZEM. WE WILL ALSO START NORMAL SALINE AT 125ML/HR AND THE POTASSIUM AND MAGNESIUM PROTOCOLS, OBTAIN BRAIN MRI (2) Generalized weakness Status: Acute (3) Hypertensive urgency Status: Resolved
[2019-06-07] MEDS: COREG TAB 6.25 MG PO SCH (21:23)
[2019-06-07] MEDS: LIPITOR TAB 40 MG PO SCH (21:24)
[2019-06-07] MEDS: ZANAFLEX PO SCH (21:24)
[2019-06-07] MEDS ORDERED: TYLENOL 325 MG TAB PO PRN (22:43)
[2019-06-08] MEDS: COLACE CAP 100 MG PO SCH (00:30)
[2019-06-08] MEDS: NS 1000 ML 1,000 ML IV SCH ×3 (02:24→10:14)
[2019-06-08] MEDS: LIBRAX PO SCH ×2 (06:04→12:30)
[2019-06-08 06:22] LABS: BASOPHILS % (AUTO) 0.5 % (0.2-1.0); EOSINOPHILS # (AUTO) 0.1 x10^3/uL (0.0-0.2); EOSINOPHILS % (AUTO) 1.9 % (0.9-2.9); HEMATOCRIT 29.7 % (36.0-47.0); HEMOGLOBIN 9.7 g/dL (12.0-16.0); LYMPHOCYTES # (AUTO) 1.2 X10^3/uL (1.3-2.9); LYMPHOCYTES % (AUTO) 19.6 % (21.0-51.0); MEAN CORPUSCULAR HEMOGLOBIN 26.1 pg (27.0-34.0); MEAN CORPUSCULAR HGB CONC 32.7 g/dL (33.0-35.0); MEAN CORPUSCULAR VOLUME 79.8 fL (80.0-100.0); MEAN PLATELET VOLUME 8.6 fL (7.4-11.0); MONOCYTES # (AUTO) 0.6 x10^3/uL (0.3-0.8); NEUTROPHILS # (AUTO) 4.4 x10^3/uL (2.2-4.8); PLATELET COUNT 194 X10^3/uL (150.0-450.0); RED BLOOD COUNT 3.73 X10^6/uL (3.5-5.4); RED CELL DISTRIBUTION WIDTH 14.7 % (11.6-16.5); WHITE BLOOD COUNT 6.4 X10^3/uL (3.6-10.0)
[2019-06-08 06:48] LABS: ALANINE AMINOTRANSFERASE 42 Units/L (12-78); ALBUMIN 2.5 g/dL (3.4-5.0); ALKALINE PHOSPHATASE 245 Units/L (46-116); ASPARTATE AMINO TRANSFERASE 142 Units/L (15-37); BLOOD UREA NITROGEN 12 mg/dL (7-18); CALCIUM 8.7 mg/dL (8.5-10.1); CARBON DIOXIDE 23.8 mmol/L (21-32); CHLORIDE 101 mmol/L (98-107); COR CA(FOR HYPOALB) 9.9 mg/dL (8.5-10.1); CREATININE 1.17 mg/dL (0.55-1.02); SODIUM 134 mmol/L (136-145); TOTAL PROTEIN 7.3 g/dL (6.4-8.2); eGFR NON BLACK RACES 49 (>60)
[2019-06-08] MEDS: LOVENOX INJ 30 MG SYR SC SCH (08:56)
[2019-06-08] MEDS: PLAVIX PO SCH (08:56)
[2019-06-08] MEDS: ASPIRIN 81 MG CHEWTAB PO SCH (09:06)
[2019-06-08] MEDS: CELEXA PO SCH (09:06)
[2019-06-08] MEDS: SYNTHROID 25 mcg TAB PO SCH (09:07)
[2019-06-08] MEDS: COREG TAB 6.25 MG PO SCH (09:07)
[2019-06-08] MEDS: MAGIC MOUTHWASH MT SCH (09:07)
[2019-06-08] MEDS: NORCO 7.5/325 MG TAB PO PRN (09:08)
[2019-06-08] MEDS ORDERED: MAGIC MOUTHWASH MT PRN (12:00)
[2019-06-08 16:36] VITALS: BP 154/66
== END 2019-06-08 16:35 | disposition home health service (06) ==
LOC: ER 20:54 → INTOOBSV 06-06 01:37 → ICU 06-06 01:37 → MED/SURG 06-06 12:00
PROVIDERS: ADMIT Internal Medicine; ATTEND Internal Medicine
DX: R26.9 Unspecified abnormalities of gait and mobility; I10 Essential (primary) hypertension; E86.0 Dehydration; R42 Dizziness and giddiness; Z87.440 Personal history of urinary (tract) infections; R53.1 Weakness; R00.0 Tachycardia, unspecified; Z79.82 Long term (current) use of aspirin; R30.9 Painful micturition, unspecified; R41.82 Altered mental status, unspecified; N28.9 Disorder of kidney and ureter, unspecified; E78.5 Hyperlipidemia, unspecified; I25.10 Atherosclerotic heart disease of native coronary artery without angina pectoris
CPT/HCPCS: 36415; 70450; 70551; 71010; 71045; 80048; 80053; 81001; 83605; 83735; 84132; 84484; 85025; 87086; 92507; 92523; 93005; 96360; 96361; 96365; 96372; 97162; 97166; 99285; A4216; A4222; G0378; J1650; J3475; J3490; J7030